=== PATIENT | male | born 1955 | race Caucasian/White ===

== ENCOUNTER → 2018-03-11 17:10 | Outpatient (CLI) | payer OTHER, SELFPAY ==
[2018-03-11 17:58] LABS: Creatinine, Serum 1.01 mg/dL (0.70-1.30); EST Glomerular Filtration Rate 80 mL/min (>60); Est Glom Filt Rate - Afr Amer 96 mL/min (>60)
== END ==
PROVIDERS: Family Provider Family Medicine; PCP Family Medicine
DX: M89.9 Disorder of bone, unspecified (principal)
CPT/HCPCS: 36415; 82565

== ENCOUNTER → 2018-04-21 07:14 | Outpatient (CLI) | payer OTHER, SELFPAY ==
[2018-04-21 10:10] LABS: Absolute Lymphocyte Count 1.56 X10^3/ul (0.83-4.51); Absolute Neutrophil Count 3.3 X10^3/uL (2.0-7.7); Basophil# 0.03 X10^3/uL; Basophil% 0.5 % (0-1); Eosinophil# 0.18 X10^3/uL; Eosinophils% 3.2 % (0-5); Hematocrit 43.3 % (40-54); Hemoglobin 15.3 g/dl (13.0-16.5); Lymphocyte # 1.56 X10^3/ul (4.0); Lymphocyte % 27.8 % (19-41); Mean Corp Hgb Conc 35.3 g/gl (32-36); Mean Corpuscular Hgb 30.4 pg (27.0-32.0); Mean Corpuscular Volume 86.1 fL (80-94); Monocyte# 0.52 X10^3/uL; Monocyte% 9.3 % (0-10); Neutrophil # 3.31 X10^3/uL (2.7-7.7); Platelet Count 213 K/mm3 (150-450); RBC Distribution Width CV 13.5 % (11.6-14.6); RBC Distribution Width SD 41.8 fl (35.1-43.9); Red Blood Count 5.03 M/mm3 (4.6-6.2); White Blood Count 5.6 K/mm3 (4.4-11.0)
[2018-04-21 10:12] LABS: POSITIVE COUNT NO; POSITIVE DIFFERENTIAL NO; POSITIVE MORPHOLOGY NO
[2018-04-21 10:16] LABS: Color, Urine Yellow (Yellow); Glucose, Dipstick Normal (Normal); Ketone-Dipstick Negative (Negative); Leukocyte Esterase-Dipstick Negative /ul (Negative); Nitrite-Dipstick Negative (Negative); Occult Blood-Urine Negative /ul (Negative); Protein-Dipstick 15 mg/dl (Negative); Specific Gravity, Urine 1.015 (1.002-1.030); Urine Bilirubin Dipstick Negative (Negative); Urine Clarity Clear (Clear); Urine Urobilinogen Normal (Normal)
[2018-04-21 10:28] LABS: Hemoglobin A1c 6.8 % (4.2-6.3)
[2018-04-21 10:30] LABS: ALB/GLOB Ratio 1.1 RATIO (0.9-2.4); AST(SGOT) 39 U/L (15-37); Alanine Aminotransfer ALT/SGPT 49 U/L (16-61); Albumin, Serum 3.9 g/dL (3.2-5.0); Alkaline Phosphatase 63 U/L (45-117); Anion Gap 8 (5-15); BUN 14 mg/dL (7-18); BUN/Creat Ratio 15.8 RATIO (10-20); Calcium,Total 8.7 mg/dL (8.5-10.1); Chloride 103 mmol/L (98-107); Cholesterol 188 mg/dL (200); Creatinine, Serum 0.88 mg/dL (0.70-1.30); EST Glomerular Filtration Rate 93 mL/min (>60); Est Glom Filt Rate - Afr Amer 112 mL/min (>60); Globulin 3.5 g/dL (2.2-4.2); Glucose 125 mg/dL (74-106); High Density Lipoprotein 51 mg/dL; Potassium 3.9 mmol/L (3.5-5.1); Protein, Total 7.4 g/dL (6.4-8.2); Sodium Level 140 mmol/L (136-145); Triglycerides 100 mg/dL; Very Low Density Lipoprotein 20 mg/dL (5-40)
[2018-04-24 16:11] LABS: Testosterone, Free 6.48 ng/dL (5.00-21.00)
[2018-04-26 10:27] LABS: Testosterone, % Free 3.21 % (1.50-4.20); Testosterone, Total 202 ng/dL (264-916)
== END ==
PROVIDERS: Family Provider Family Medicine; PCP Family Medicine; Visit Provider Family Medicine
DX: Z00.00 Encounter for general adult medical examination without abnormal findings (principal); Z12.5 Encounter for screening for malignant neoplasm of prostate; I10 Essential (primary) hypertension; E11.9 Type 2 diabetes mellitus without complications; E29.1 Testicular hypofunction; Z51.81 Encounter for therapeutic drug level monitoring
CPT/HCPCS: 36415; 80053; 80061; 81002; 83036; 84402; 84403; 85025

== ENCOUNTER → 2018-09-08 07:01 | Outpatient (CLI) | payer OTHER, SELFPAY ==
[2018-09-08 10:35] LABS: Hematocrit 44.8 % (40-54); Hemoglobin 15.9 g/dl (13.0-16.5); Mean Corp Hgb Conc 35.5 g/gl (32-36); Mean Corpuscular Hgb 30.2 pg (27.0-32.0); Mean Platelet Vol. 10.1 fl (6.2-12.0); Platelet Count 227 K/mm3 (150-450); RBC Distribution Width CV 13.1 % (11.6-14.6); RBC Distribution Width SD 40.8 fl (35.1-43.9); Red Blood Count 5.27 M/mm3 (4.6-6.2); White Blood Count 4.8 K/mm3 (4.4-11.0)
[2018-09-08 10:42] LABS: Scan Indicated on CBC? Y/N NO
[2018-09-08 10:48] LABS: Homocysteine 7.6 umol/L (3.2-10.7)
[2018-09-08 11:15] LABS: Hemoglobin A1c 7.3 % (4.2-6.3)
[2018-09-08 11:16] LABS: Vitamin B12 809 pg/mL (211-911); Vitamin D,25 Hydroxy 24.4 ng/mL (29.95-100.01)
[2018-09-08 11:53] LABS: ALB/GLOB Ratio 1.1 RATIO (0.9-2.4); AST(SGOT) 40 U/L (15-37); Alanine Aminotransfer ALT/SGPT 61 U/L (16-61); Albumin, Serum 4.1 g/dL (3.2-5.0); Alkaline Phosphatase 71 U/L (45-117); Anion Gap 7 (5-15); BUN 13 mg/dL (7-18); BUN/Creat Ratio 13.5 RATIO (10-20); CRP, High Sensitivity Cardiac 0.85 mg/L; Chloride 102 mmol/L (98-107); Cholesterol 207 mg/dL (200); Creatinine, Serum 0.97 mg/dL (0.70-1.30); EST Glomerular Filtration Rate 84 mL/min (>60); Est Glom Filt Rate - Afr Amer 101 mL/min (>60); Estradiol 28.6 pg/mL; Free T3 3.1 pg/mL (2.18-3.98); Globulin 3.6 g/dL (2.2-4.2); Glucose 156 mg/dL (74-106); High Density Lipoprotein 44 mg/dL; Iron 110 ug/dL (65-175); Luteinizing Hormone 0.3 mIU/mL; Magnesium 1.7 mg/dL (1.6-2.6); PSA,Total - Annual Screen 1.54 ng/mL (0.00-4.00); Potassium 4.1 mmol/L (3.5-5.1); Prolactin 6.1 ng/mL; Protein, Total 7.7 g/dL (6.4-8.2); Sodium Level 137 mmol/L (136-145); T4 Free Direct 0.95 ng/dL (0.76-1.46); Thyroid Stim Hormone (TSH) 1.81 uIU/mL (0.358-3.74); Triglycerides 128 mg/dL; Very Low Density Lipoprotein 26 mg/dL (5-40)
[2018-09-11 12:07] LABS: DHEA Sulfate 78.6 ug/dL (48.9-344.2); Insulin Like Growth Factor 150 ng/mL (49-188); Testosterone, % Free 3.13 % (1.50-4.20); Testosterone, Free 10.49 ng/dL (5.00-21.00)
[2018-09-11 14:08] LABS: Sex Hormone-binding Globulin 36.6 nmol/L (19.3-76.4); Testosterone, Total 335 ng/dL (264-916)
--- OUTSIDE RECORDS SUMMARY | 2018-10-20 19:52 | XMS RPT_ITS ---
:1955 Author Organization OHIP Care Team Providers Name Role Phone Saroj Hernandez Attending Unavailable Saroj Hernandez Primary Care Unavailable JUAN DANIEL ROSENTHAL Attending Unavailable JUAN DANIEL ROSENTHAL Referring Unavailable Saroj Hernandez Primary Care Unavailable Saroj Hernandez Attending Unavailable Saroj Hernandez Referring Unavailable David Saroj Primary Care Unavailable JUAN DANIEL ROSENTHAL Attending Unavailable JUAN DANIEL ROSENTHAL Referring Unavailable Saroj Hernandez Primary Care Unavailable PROBLEMS PROBLEMS DATE TYPE CONDITION / CODE ATTENDING STATUS SOURCE 09/22/2018 Unknown 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 / Community E88.81(ICD-10) Hospital Repository 04/21/2018 Unknown Z00.00 - Encounter Saroj Hernandez Active [place] for [facility] without abnormal Repository findings / Z00.00(ICD-10) 04/21/2018 Unknown I10 - Essential Saroj Hernandez (primary) [facility] hypertension / Hospital I10(ICD-10) Repository 04/21/2018 Unknown E11.9 - Type 2 Saroj Hernandez diabetes mellitus Community without Hospital complications / Repository E11.9(ICD-10) 04/21/2018 Unknown 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 / Community E29.1(ICD-10) Hospital Repository 04/21/2018 Unknown Z12.5 - Encounter Saroj Hernandez for screening for [facility] malignant neoplasm [facility] of prostate / Repository Z12.5(ICD-10) PROCEDURES PROCEDURES No Procedure Records FoundRESULTS RESULTS CBC-COMPLETE BLOOD CNT Collected: 09/08/2018 Status: F Source: [place] NO DIFF 7:07 AM [facility] REPOSITORY TYPE CODE TESTS RESULT OUT OF RANGE REFERENCE UNITS LAB L100.1000 4.4-11.0 K/mm3 Normal WBC 4.8 LAB L100.1200 4.6-6.2 M/mm3 Normal RBC 5.27 LAB L100.1300 13.0-16.5 g/dl Normal HGB 15.9 LAB L100.1400 40-54 % Normal HCT 44.8 LAB L100.1500 80-94 fL Normal MCV 85.0 LAB L100.1600 27.0-32.0 pg Normal MCH 30.2 LAB L100.1700 32-36 g/gl Normal MCHC 35.5 LAB L100.1810 11.6-14.6 % Normal RDW CV 13.1 LAB L100.1820 35.1-43.9 fl Normal RDW SD 40.8 LAB L100.1900 150-450 K/mm3 Normal PLT 227 LAB L100.2000 6.2-12.0 fl Normal MPV 10.1 Performed By: #### L100.0500 #### [facility] [address] [place], [place], [address] HOMOCYSTEINE Collected: 09/08/2018 Status: F Source: [place] 7:07 AM [facility] REPOSITORY TYPE CODE TESTS RESULT OUT OF REFERENCE UNITS RANGE LAB L503.8001 3.2-10.7 umol/L HOMOCYSTEINE Normal 7.6 Performed By: #### L503.8001 #### [facility] [address] [place], [address] HEMOGLOBIN A1C Collected: 09/08/2018 Status: F Source: [place] 7:07 AM [facility] REPOSITORY TYPE CODE TESTS RESULT OUT OF RANGE REFERENCE UNITS LAB L501.9985 4.2-6.3 % High HGB A1C 7.3 Performed By: #### L501.9985 #### [facility] [address] [place], [address] VITAMIN B12 Collected: 09/08/2018 Status: F Source: [place] 7:07 AM [facility] REPOSITORY Order Comment: Comments: PREGNENOLONE lc [id number] SERUM FRZ TYPE CODE TESTS RESULT OUT OF RANGE REFERENCE UNITS LAB L503.0105 211-911 pg/mL Normal Vitamin B12 809 Performed By: #### L503.0105, L506.1000, L509.6000 #### [facility] [address] [place], [address] VITAMIN D,25 HYDROXY Collected: 09/08/2018 Status: F Source: [place] 7:07 AM [facility] REPOSITORY Order Comment: Comments: PREGNENOLONE lc [id number] SERUM FRZ TYPE CODE TESTS RESULT OUT OF REFERENCE UNITS RANGE LAB L506.1000 29.95-100.01 ng/mL Low Vitamin D 24.4 25-OH Result Comment: Vitamin D 25(OH) Status Range Deficiency <20 ng/mL (50nmol/L) Insuffciency 20 - 30 ng/mL (50 - 75 nmol/L) Sufficiency 30 - 100 ng/mL (75 - 250 nmol/L) Toxicity >100 ng/mL (>250 nmol/L) Performed By: #### L503.0105, L506.1000, L509.6000 #### [facility] [address] [place], [address] CORTISOL SERUM Collected: 09/08/2018 Status: F Source: [place] 7:07 AM [facility] REPOSITORY Order Comment: Comments: PREGNENOLONE lc [id number] SERUM FRZ TYPE CODE TESTS RESULT OUT OF RANGE REFERENCE UNITS LAB L509.6000 3.09-22.40 ug/dL Normal CORTISOL 16.90 Result Comment: Adult (AM) 4.30 - 22.40 ug/dL Adult (PM) 3.09 - 16.66 ug/dL Performed By: #### L503.0105, L506.1000, L509.6000 #### [facility] [address] [place], [address] COMPREHENSIVE METABOLIC Collected: 09/08/2018 Status: F Source: [place] RIGGINS 7:07 AM [facility] REPOSITORY Order Comment: Has Patient had X-rays with Contrast this admission? N Comments: PREGNENOLONE lc [id number] SERUM FRZ Is Patient Taking Vitamins or Folic Acid Supplements? N TYPE CODE TESTS RESULT OUT OF RANGE REFERENCE UNITS LAB L501.0100 74-106 mg/dL High GLU 156 Result Comment: Fasting Glucose result greater than or equal to 126 mg/dL suggests DIABETES MELLITUS per A.D.A. criteria. Please note revised GLUCOSE reference range effective 2017. LAB L501.1000 7-18 mg/dL Normal BUN 13 LAB L501.1100 0.70-1.30 mg/dL Normal CREAT,SERUM 0.97 Result Comment: The validity of the calculated GFR AND GFRAA in patients over 70 years has not been determined. Clinical correlation is essential. LAB L501.1110 >60 mL/min Normal EST GFR 84 Result Comment: Non- GFR Calc LAB L501.1115 >60 mL/min Normal EST GFR - AA 101 Result Comment: GFR Calc LAB L501.1300 10-20 RATIO Normal BUN/CRE 13.5 LAB L501.1500 6.4-8.2 g/dL T Normal PROT 7.7 LAB L501.1800 3.2-5.0 g/dL Normal ALB 4.1 LAB L501.1950 2.2-4.2 g/dL Normal GLOB 3.6 LAB L501.2000 0.9-2.4 RATIO Normal A/G 1.1 LAB L501.2200 8.5-10.1 mg/dL CA Normal 9.0 LAB L501.4100 15-37 U/L High AST 40 LAB L501.4305 45-117 U/L Normal ALK P 71 LAB L501.4405 16-61 U/L Normal ALT 61 LAB L501.4600 0.20-1.00 mg/dL T Normal BILI 0.60 LAB L501.5300 136-145 mmol/L NA Normal 137 LAB L501.5600 3.5-5.1 mmol/L K Normal 4.1 LAB L501.5900 98-107 mmol/L CL Normal 102 LAB L501.6100 21.0-32.0 mmol/L Normal CO2 28.0 LAB L501.6200 5-15 Normal GAP 7 Performed By: #### L500.4050, L500.4100, L501.5200, L501.6750, L501.67176, L501.9310, L501.9520, L501.9910, L503.6150, L506.0250, L506.0400, L3100.5125, L3100.5170, L3100.5420, L3300.1750 #### [facility] [address] [place], [address] LIPID PROFILE Collected: 09/08/2018 Status: F Source: [place] 7:07 AM [facility] REPOSITORY Order Comment: Has Patient had X-rays with Contrast this admission? N Comments: PREGNENOLONE lc [id number] SERUM FRZ Is Patient Taking Vitamins or Folic Acid Supplements? N TYPE CODE TESTS RESULT OUT OF RANGE REFERENCE UNITS LAB L501.4900 200 mg/dL High CHOL 207 Result Comment: <200 mg/dL Desirable 200-240 mg/dL Borderline >240 mg/dL High Risk LAB L501.5000 mg/dL Normal TRIG 128 Result Comment: The drugs N-Acetylcysteine and Metamizole may falsely depress this assay. Serum Triglycerides Reference Interval Normal <150 mg/dL Borderline high 150 - 199 mg/dL High 200 - 499 mg/dL Very High > or = 500 mg/dL LAB L501.6400 mg/dL Normal HDL 44 Result Comment: The drugs N-Acetylcysteine and Metamizole may falsely depress this assay. Reference Range HDL <40 mg/dL Low HDL Cholesterol HDL >or= 60 mg/dL High HDL Cholesterol LAB L501.6500 0-130 mg/dL High LDL 137 LAB L501.6600 5-40 mg/dL Normal VLDL 26 Performed By: #### L500.4050, L500.4100, L501.5200, L501.6750, L501.25140, L501.9310, L501.9520, L501.9910, L503.6150, L506.0250, L506.0400, L3100.5125, L3100.5170, L3100.5420, L3300.1750 #### [facility] [address] [facility] [place], [place], [phone] ([phone]) MAGNESIUM Collected: 09/08/2018 Status: F Source: [place] 7:07 AM [facility] REPOSITORY Order Comment: Has Patient had X-rays with Contrast this admission? N Comments: PREGNENOLONE lc [id number] SERUM FRZ Is Patient Taking Vitamins or Folic Acid Supplements? N TYPE CODE TESTS RESULT OUT OF RANGE REFERENCE UNITS LAB L501.5200 1.6-2.6 mg/dL Normal MG 1.7 Performed By: #### L500.4050, L500.4100, L501.5200, L501.6750, L501.35236, L501.9310, L501.9520, L501.9910, L503.6150, L506.0250, L506.0400, L3100.5125, L3100.5170, L3100.5420, L3300.1750 #### [facility] [address] [facility] [place], [place], [phone], HIGH SENSITIVITY Collected: 09/08/2018 Status: F Source: [facility] 7:07 AM [facility] REPOSITORY Order Comment: Has Patient had X-rays with Contrast this admission? N Comments: PREGNENOLONE lc [id number] SERUM FRZ Is Patient Taking Vitamins or Folic Acid Supplements? N TYPE CODE TESTS RESULT OUT OF RANGE REFERENCE UNITS LAB L501.6750 mg/L Normal CRP HIGH 0.85 SENS Result Comment: Low Relative Risk of CVD <1.0 mg/L Average Relative Risk of CVD 1.0 - 3.0 mg/L High Relative Risk of CVD >3.0 mg/L Performed By: #### L500.4050, L500.4100, L501.5200, L501.6750, L501.39224, L501.9310, L501.9520, L501.9910, L503.6150, L506.0250, L506.0400, L3100.5125, L3100.5170, L3100.5420, L3300.1750 #### [facility] [address] [facility] [place], [place], [id number] FREE T3 Collected: 09/08/2018 Status: F Source: [place] 7:07 AM [facility] REPOSITORY Order Comment: Has Patient had X-rays with Contrast this admission? N Comments: PREGNENOLONE lc [id number] SERUM FRZ Is Patient Taking Vitamins or Folic Acid Supplements? N TYPE CODE TESTS RESULT OUT OF RANGE REFERENCE UNITS LAB L501.89199 2.18-3.98 pg/mL Normal FREE T3 3.1 Performed By: #### L500.4050, L500.4100, L501.5200, L501.6750, L501.44077, L501.9310, L501.9520, L501.9910, L503.6150, L506.0250, L506.0400, L3100.5125, L3100.5170, L3100.5420, L3300.1750 #### [facility] [address] [facility] [place], [place], [id number] T4 TOTAL, THYROXIN Collected: 09/08/2018 Status: F Source: [place] 7:07 AM [facility] REPOSITORY Order Comment: Has Patient had X-rays with Contrast this admission? N Comments: PREGNENOLONE lc [id number] SERUM FRZ Is Patient Taking Vitamins or Folic Acid Supplements? N TYPE CODE TESTS RESULT OUT OF RANGE REFERENCE UNITS LAB L501.9310 4.5-12.1 ug/dL T4 Normal THYROXIN 8.0 Performed By: #### L500.4050, L500.4100, L501.5200, L501.6750, L501.26264, L501.9310, L501.9520, L501.9910, L503.6150, L506.0250, L506.0400, L3100.5125, L3100.5170, L3100.5420, L3300.1750 #### [facility] [address] [place], [place], [id number] THYROID STIM HORMONE Collected: 09/08/2018 Status: F Source: [place] (TSH) 7:07 AM [facility] REPOSITORY Order Comment: Has Patient had X-rays with Contrast this admission? N Comments: PREGNENOLONE lc [id number] SERUM FRZ Is Patient Taking Vitamins or Folic Acid Supplements? N TYPE CODE TESTS RESULT OUT OF RANGE REFERENCE UNITS LAB L501.9520 0.358-3.74 uIU/mL Normal TSH 1.81 Performed By: #### L500.4050, L500.4100, L501.5200, L501.6750, L501.94445, L501.9310, L501.9520, L501.9910, L503.6150, L506.0250, L506.0400, L3100.5125, L3100.5170, L3100.5420, L3300.1750 #### [facility] [address] [facility] [place], [place], [address] PSA,TOTAL - ANNUAL Collected: 09/08/2018 Status: F Source: [place] SCREEN 7:07 AM [facility] REPOSITORY Order Comment: Has Patient had X-rays with Contrast this admission? N Comments: PREGNENOLONE lc [id number] SERUM FRZ Is Patient Taking Vitamins or Folic Acid Supplements? N TYPE CODE TESTS RESULT OUT OF RANGE REFERENCE UNITS LAB L501.9910 0.00-4.00 ng/mL Normal PSA,TOT 1.54 SCREEN Result Comment: This test was performed using the TPSA assay method for the Kabbee chemistry system. Values obtained with different assay methods cannot be used interchangably. When changing PSA assays in the course of monitoring a patient, additional sequential testing should be carried out to confirm baseline values. Performed By: #### L500.4050, L500.4100, L501.5200, L501.6750, L501.98807, L501.9310, L501.9520, L501.9910, L503.6150, L506.0250, L506.0400, L3100.5125, L3100.5170, L3100.5420, L3300.1750 #### [facility] [address] [place], [place], [phone] ([phone]) IRON Collected: 09/08/2018 Status: F Source: [place] 7:07 AM [facility] REPOSITORY Order Comment: Has Patient had X-rays with Contrast this admission? N Comments: PREGNENOLONE lc [id number] SERUM FRZ Is Patient Taking Vitamins or Folic Acid Supplements? N TYPE CODE TESTS RESULT OUT OF RANGE REFERENCE UNITS LAB L503.6150 65-175 ug/dL Normal IRON 110 Performed By: #### L500.4050, L500.4100, L501.5200, L501.6750, L501.66741, L501.9310, L501.9520, L501.9910, L503.6150, L506.0250, L506.0400, L3100.5125, L3100.5170, L3100.5420, L3300.1750 #### [facility] [address] [place], [place], [phone] ([phone] FOLATES, (FOLIC ACID) Collected: 09/08/2018 Status: F Source: [place] 7:07 AM [facility] REPOSITORY Order Comment: Has Patient had X-rays with Contrast this admission? N Comments: PREGNENOLONE lc [id number] SERUM FRZ Is Patient Taking Vitamins or Folic Acid Supplements? N TYPE CODE TESTS RESULT OUT OF RANGE REFERENCE UNITS LAB L506.0250 3.1-55.4 ng/mL Normal FOLATES 48.80 Performed By: #### L500.4050, L500.4100, L501.5200, L501.6750, L501.11606, L501.9310, L501.9520, L501.9910, L503.6150, L506.0250, L506.0400, L3100.5125, L3100.5170, L3100.5420, L3300.1750 #### [facility] [address] [place], [place], [address] [phone] T4 FREE DIRECT Collected: 09/08/2018 Status: F Source: [place] 7:07 AM [facility] REPOSITORY Order Comment: Has Patient had X-rays with Contrast this admission? N Comments: PREGNENOLONE lc [id number] SERUM FRZ Is Patient Taking Vitamins or Folic Acid Supplements? N TYPE CODE TESTS RESULT OUT OF RANGE REFERENCE UNITS LAB L506.0400 0.76-1.46 ng/dL Normal T4 FREE 0.95 DIRECT Performed By: #### L500.4050, L500.4100, L501.5200, L501.6750, L501.41551, L501.9310, L501.9520, L501.9910, L503.6150, L506.0250, L506.0400, L3100.5125, L3100.5170, L3100.5420, L3300.1750 #### [facility] [address] [facility] [address] [place], [address] FOLLICLE STIMULATING Collected: 09/08/2018 Status: F Source: [place] HORMONE 7:07 AM [facility] REPOSITORY Order Comment: Has Patient had X-rays with Contrast this admission? N Comments: PREGNENOLONE lc [id number] SERUM FRZ Is Patient Taking Vitamins or Folic Acid Supplements? N TYPE CODE TESTS RESULT OUT OF RANGE REFERENCE UNITS LAB L3100.5125 mIU/mL Normal FSH 1.0 Result Comment: NORMAL REFERENCE RANGES FEMALE FOLLICULAR 2.3 - 12.6 mIU/mL MID-CYCLE PEAK 5.2 - 17.5 mIU/mL LUTEAL 1.7 - 12.9 mIU/mL POST-MENOPAUSAL ON MHT 5.9 - 72.8 mIU/mL NOT ON MHT 12.7 - 132.2 mlU/mL MALE 0.7 - 10.8 mIU/mL NEW TEST METHOD AND REFERENCE RANGES MARCH 02, 2012 Performed By: #### L500.4050, L500.4100, L501.5200, L501.6750, L501.72178, L501.9310, L501.9520, L501.9910, L503.6150, L506.0250, L506.0400, L3100.5125, L3100.5170, L3100.5420, L3300.1750 #### [facility] [address] [place], [place], [address] LUTEINIZING HORMONE Collected: 09/08/2018 Status: F Source: [place] 7:07 AM [facility] REPOSITORY Order Comment: Has Patient had X-rays with Contrast this admission? N Comments: PREGNENOLONE lc [id number] SERUM FRZ Is Patient Taking Vitamins or Folic Acid Supplements? N TYPE CODE TESTS RESULT OUT OF RANGE REFERENCE UNITS LAB L3100.5170 mIU/mL Normal LH 0.3 Result Comment: NORMAL REFERENCE RANGES FEMALE FOLLICULAR 1.9 - 26.2 mIU/mL MID-CYCLE PEAK 22.8 - 76.1 mIU/mL LUTEAL 0.6 - 16.6 mIU/mL POST-MENOPAUSAL ON MHT 1.1 - 52.4 mIU/mL NOT ON MHT 8.6 - 61.8 mIU/mL MALE 1.2 - 10.6 mIU/mL NEW TEST METHOD AND REFERENCE RANGES MARCH 02, 2012 Performed By: #### L500.4050, L500.4100, L501.5200, L501.6750, L501.61982, L501.9310, L501.9520, L501.9910, L503.6150, L506.0250, L506.0400, L3100.5125, L3100.5170, L3100.5420, L3300.1750 #### [facility] [address] [place], [address] PROLACTIN Collected: 09/08/2018 Status: F Source: [place] 7:07 AM [facility] REPOSITORY Order Comment: Has Patient had X-rays with Contrast this admission? N Comments: PREGNENOLONE lc [id number] SERUM FRZ Is Patient Taking Vitamins or Folic Acid Supplements? N TYPE CODE TESTS RESULT OUT OF RANGE REFERENCE UNITS LAB L3100.5420 ng/mL Normal PROLACTIN 6.1 Result Comment: NORMAL REFERENCE RANGES FEMALE NON- 2.2 - 30.3 ng/mL 8.1 - 347.6 ng/mL POST-MENOPAUSAL 0.7 - 31.5 ng/mL MALE 2.5 - 17.4 ng/mL NEW TEST METHOD AND REFERENCE RANGES MARCH 02, 2012 Performed By: #### L500.4050, L500.4100, L501.5200, L501.6750, L501.43343, L501.9310, L501.9520, L501.9910, L503.6150, L506.0250, L506.0400, L3100.5125, L3100.5170, L3100.5420, L3300.1750 #### [facility] [address] [place], [place], [address] ESTRADIOL Collected: 09/08/2018 Status: F Source: [place] 7:07 AM [facility] REPOSITORY Order Comment: Has Patient had X-rays with Contrast this admission? N Comments: PREGNENOLONE lc [id number] SERUM FRZ Is Patient Taking Vitamins or Folic Acid Supplements? N TYPE CODE TESTS RESULT OUT OF RANGE REFERENCE UNITS LAB L3300.1750 pg/mL Normal ESTRADIOL 28.6 Result Comment: NORMAL REFERENCE RANGES FEMALE FOLLICULAR 21.4 - 164.8 pg/mL MID-CYCLE PEAK 49.9 - 367.2 pg/mL LUTEAL 40.2 - 259.0 pg/mL POST-MENOPAUSAL ON MHT <11.0 - 462.1 pg/mL NOT ON MHT <11.0 - 58.3 pg/mL MALE <11.0 - 52.5 pg/mL NOTE: [facility] HAS CONFIRMED THE DRUG FULVETRANT (FASLODEX) MAY CAUSE FALSELY ELEVATED ESTRADIOL RESULTS WHEN USING THIS TEST METHOD. IF PATIENT IS TAKING FULVESTRANT AN ALTERNATIVE METHOD SHOULD BE USED TO DETERMINE ESTRADIOL CONCENTRATION. Performed By: #### L500.4050, L500.4100, L501.5200, L501.6750, L501.84717, L501.9310, L501.9520, L501.9910, L503.6150, L506.0250, L506.0400, L3100.5125, L3100.5170, L3100.5420, L3300.1750 #### [facility] [address] [place], [place], [address] SEX HORMONE-BINDING Collected: 09/08/2018 Status: F Source: [place] GLOBULIN 7:07 AM [facility] REPOSITORY Order Comment: Has Patient had X-rays with Contrast this admission? N Comments: PREGNENOLONE lc [id number] SERUM FRZ Has Patient had Radioactive Injection for X-ray?: N TYPE CODE TESTS RESULT OUT OF RANGE REFERENCE UNITS LAB L3100.5060 19.3-76.4 nmol/L Normal SHBG 36.6 Result Comment: Performed at: - [facility] [id number] Gym Teacher: Kavin Sosa PhD, Phone: [phone] Performed at: - [facility] [id number] Gym Teacher: Anthony Borden MD, Phone: [phone] Performed By: #### L3100.5060, L3100.5310, L3300.1500, L3400.1350 #### [facility] (refer to report for specific site) refer to report for address and phone number TESTOSTERONE, TOTAL / Collected: 09/08/2018 Status: F Source: [place] FREE 7:07 AM [facility] REPOSITORY Order Comment: Has Patient had X-rays with Contrast this admission? N Comments: PREGNENOLONE lc [id number] SERUM FRZ Has Patient had Radioactive Injection for X-ray?: N TYPE CODE TESTS RESULT OUT OF RANGE REFERENCE UNITS LAB L3100.5320 264-916 ng/dL Normal 335 TESTOSTER,TO NICK Result Comment: Adult male reference interval is based on a population of healthy nonobese males (BMI <30) between 19 and 39 years old. shayy Calderon.al. JCEM 2017,102;5497-2686. PMID: [id number]. LAB L3100.5340 5.00-21.00 ng/dL TESTOSTER,FREE Normal 10.49 LAB L3100.5360 1.50-4.20 % TESTOSTER %FREE Normal 3.13 Performed By: #### L3100.5060, L3100.5310, L3300.1500, L3400.1350 #### [facility] (refer to report for specific site) refer to report for address and phone number DHEA SULFATE Collected: 09/08/2018 Status: F Source: [place] 7:07 AM [facility] REPOSITORY Order Comment: Has Patient had X-rays with Contrast this admission? N Comments: PREGNENOLONE lc [id number] SERUM FRZ Has Patient had Radioactive Injection for X-ray?: N TYPE CODE TESTS RESULT OUT OF RANGE REFERENCE UNITS LAB L3300.1500 48.9-344.2 ug/dL Normal DHEA SULF 78.6 4020 Performed By: #### L3100.5060, L3100.5310, L3300.1500, L3400.1350 #### [facility] (refer to report for specific site) refer to report for address and phone number INSULIN LIKE GROWTH Collected: 09/08/2018 Status: F Source: [place] FACTOR 7:07 AM [facility] REPOSITORY Order Comment: Has Patient had X-rays with Contrast this admission? N Comments: PREGNENOLONE lc [id number] SERUM FRZ Has Patient had Radioactive Injection for X-ray?: N TYPE CODE TESTS RESULT OUT OF RANGE REFERENCE UNITS LAB L3400.1350 49-188 ng/mL Normal INSULIN 150 [id number] Performed By: #### L3100.5060, L3100.5310, L3300.1500, L3400.1350 #### [facility] (refer to report for specific site) refer to report for address and phone number MISCELLANEOUS LAB Collected: 09/08/2018 Status: F Source: [place] PROCEDURE 7:07 AM [facility] REPOSITORY Order Comment: Comments: PREGNENOLONE lc [id number] SERUM FRZ Test(s) Ordered: PREGNENOLONE lc 110246 SERUM FRZ TYPE CODE TESTS RESULT OUT OF RANGE REFERENCE UNITS LAB L801.1541 Normal [facility] LAB TEST Result Comment: TEST RESULT UNITS REFERENCE INTERVAL Pregnenolone, MS 34 ng/dL REFERENCE RANGE: ADULTS: <151 TESTING PERFORMED AT [facility]. ORIGINAL REPORT ON FILE IN LAB CONTAINS ADDITIONAL TEST SITE INFORMATION. Performed By: #### L801.1541 #### [facility] [address], [address] CBC W/DIFF, AUTOMATED Collected: 04/21/2018 Status: F Source: [place] 7:22 AM [facility] REPOSITORY TYPE CODE TESTS RESULT OUT OF RANGE REFERENCE UNITS LAB L100.1000 4.4-11.0 K/mm3 Normal WBC 5.6 LAB L100.1200 4.6-6.2 M/mm3 Normal RBC 5.03 LAB L100.1300 13.0-16.5 g/dl Normal HGB 15.3 LAB L100.1400 40-54 % Normal HCT 43.3 LAB L100.1500 80-94 fL Normal MCV 86.1 LAB L100.1600 27.0-32.0 pg Normal MCH 30.4 LAB L100.1700 32-36 g/gl Normal MCHC 35.3 LAB L100.1810 11.6-14.6 % Normal RDW CV 13.5 LAB L100.1820 35.1-43.9 fl Normal RDW SD 41.8 LAB L100.1900 150-450 K/mm3 Normal PLT 213 LAB L100.2000 6.2-12.0 fl Normal MPV 10.0 LAB L100.2100 47-70 % Normal NEUT% 59.0 LAB L100.2200 19-41 % Normal LY% 27.8 LAB L100.2300 0-10 % Normal MONO% 9.3 LAB L100.2400 0-5 % Normal EO% 3.2 LAB L100.2500 0-1 % Normal BASO% 0.5 LAB L100.2550 0.0-0.9 % Normal IM GRAN % 0.200 Result Comment: IG% - Immature Granulocytes (promyelocytes, myelocytes and metamyelocytes) > 1% indicates that a LEFT SHIFT is Present. LAB L100.2620 2.0-7.7 X10 3/uL Normal Absolute Neut 3.3 LAB L100.2720 0.83-4.51 X10 3/ul Normal Absolute Lymph 1.56 Performed By: #### L100.0100 #### [facility] [address] [place], [address] URINALYSIS, ROUTINE Collected: 04/21/2018 Status: F Source: EDI (DIPSTICK) 7:22 AM [facility] [place] REPOSITORY Order Comment: How was Urine Obtained? CLEAN CATCH TYPE CODE TESTS RESULT OUT OF RANGE REFERENCE UNITS LAB L400.3000 Yellow COLOR Normal Yellow LAB L400.3050 Clear Normal CLARITY Clear LAB L400.3200 Normal mg/dl Normal GLUCOSE, UR Normal LAB L400.3300 Negative mg/dL Normal BILIRUBIN URINE Negative LAB L400.3400 Negative mg/dl Normal KETONE UR Negative LAB L400.3465 1.002-1.030 Normal SP.GR. DIPSTX 1.015 LAB L400.3550 5.0 - 8.0 pH UR Normal 6.0 LAB L400.3600 Negative mg/dl High PROT 15 DIPSTX LAB L400.3700 Normal mg/dl Normal UROBILI Normal LAB L400.3750 Negative Normal NITRITE UR Negative LAB L400.3780 Negative /ul Normal OCCULT BLOOD-UR Negative LAB L400.3800 Negative /ul LEUK Normal ESTERASE Negative Performed By: #### L400.2010 #### [facility] [address] [place], [place], [address] HEMOGLOBIN A1C Collected: 04/21/2018 Status: F Source: [place] 7:22 AM [facility] REPOSITORY TYPE CODE TESTS RESULT OUT OF RANGE REFERENCE UNITS LAB L501.9985 4.2-6.3 % High HGB A1C 6.8 Performed By: #### L501.9985 #### [facility] [address] [place], [address] COMPREHENSIVE METABOLIC Collected: 04/21/2018 Status: F Source: [facility] 7:22 AM [facility] REPOSITORY Order Comment: PSA SCREEN WAS DONE 10/09/18 TYPE CODE TESTS RESULT OUT OF RANGE REFERENCE UNITS LAB L501.0100 74-106 mg/dL High GLU 125 Result Comment: Fasting Glucose result from 100 to 125 mg/dL suggests IMPAIRED HOMEOSTASIS per A.D.A. criteria. Please note revised GLUCOSE reference range effective 2017. LAB L501.1000 7-18 mg/dL Normal BUN 14 LAB L501.1100 0.70-1.30 mg/dL Normal CREAT,SERUM 0.88 Result Comment: The validity of the calculated GFR AND GFRAA in patients over 70 years has not been determined. Clinical correlation is essential. LAB L501.1110 >60 mL/min Normal EST GFR 93 Result Comment: Non- GFR Calc LAB L501.1115 >60 mL/min Normal EST GFR - AA 112 Result Comment: GFR Calc LAB L501.1300 10-20 RATIO Normal BUN/CRE 15.8 LAB L501.1500 6.4-8.2 g/dL T Normal PROT 7.4 LAB L501.1800 3.2-5.0 g/dL Normal ALB 3.9 LAB L501.1950 2.2-4.2 g/dL Normal GLOB 3.5 LAB L501.2000 0.9-2.4 RATIO Normal A/G 1.1 LAB L501.2200 8.5-10.1 mg/dL CA Normal 8.7 LAB L501.4100 15-37 U/L High AST 39 LAB L501.4305 45-117 U/L Normal ALK P 63 LAB L501.4405 16-61 U/L Normal ALT 49 LAB L501.4600 0.20-1.00 mg/dL High T BILI 1.20 LAB L501.5300 136-145 mmol/L NA Normal 140 LAB L501.5600 3.5-5.1 mmol/L K Normal 3.9 LAB L501.5900 98-107 mmol/L CL Normal 103 LAB L501.6100 21.0-32.0 mmol/L Normal CO2 29.0 LAB L501.6200 5-15 Normal GAP 8 Performed By: #### L500.4050, L500.4100 #### [facility]. [place], [place], [id number] LIPID PROFILE Collected: 04/21/2018 Status: F Source: [place] 7:22 AM [facility] REPOSITORY Order Comment: PSA SCREEN WAS DONE 10/09/18 TYPE CODE TESTS RESULT OUT OF RANGE REFERENCE UNITS LAB L501.4900 200 mg/dL Normal CHOL 188 Result Comment: <200 mg/dL Desirable 200-240 mg/dL Borderline >240 mg/dL High Risk LAB L501.5000 mg/dL Normal TRIG 100 Result Comment: The drugs N-Acetylcysteine and Metamizole may falsely depress this assay. Serum Triglycerides Reference Interval Normal <150 mg/dL Borderline high 150 - 199 mg/dL High 200 - 499 mg/dL Very High > or = 500 mg/dL LAB L501.6400 mg/dL Normal HDL 51 Result Comment: The drugs N-Acetylcysteine and Metamizole may falsely depress this assay. Reference Range HDL <40 mg/dL Low HDL Cholesterol HDL >or= 60 mg/dL High HDL Cholesterol LAB L501.6500 0-130 mg/dL Normal LDL 117 LAB L501.6600 5-40 mg/dL Normal VLDL 20 Performed By: #### L500.4050, L500.4100 #### [facility] [address] [place], [address] TESTOSTERONE, TOTAL / Collected: 04/21/2018 Status: F Source: [place] FREE 7:22 AM [facility] REPOSITORY Order Comment: Has Patient had X-rays with Contrast this admission? N TYPE CODE TESTS RESULT OUT OF RANGE REFERENCE UNITS LAB L3100.5320 264-916 ng/dL Low 202 TESTOSTER,TO NICK Result Comment: Adult male reference interval is based on a population of healthy nonobese males (BMI <30) between 19 and 39 years old. Yumiko et.al. JCEM 2017,102;2954-1418. PMID: 13752565. LAB L3100.5340 5.00-21.00 ng/dL TESTOSTER,FREE Normal 6.48 LAB L3100.5360 1.50-4.20 % TESTOSTER %FREE Normal 3.21 Result Comment: Performed at: [facility] [id number] Gym Teacher: Kavin Sosa PhD, Phone: [phone] Performed at: [facility] [id number] Gym Teacher: Leighton Jauregui MD, Phone: [phone] Performed By: #### L3100.5310 #### [facility] (refer to report for specific site) refer to report for address and phone number SERUM CREATININE AND Collected: 03/11/2018 Status: F Source: EDI GFR 5:14 PM [facility] REPOSITORY TYPE CODE TESTS RESULT OUT OF RANGE REFERENCE UNITS LAB L501.1100 0.70-1.30 mg/dL Normal 1.01 CREAT,SERUM Result Comment: The validity of the calculated GFR AND GFRAA in patients over 70 years has not been determined. Clinical correlation is essential. LAB L501.1110 >60 mL/min Normal EST GFR 80 Result Comment: Non- GFR Calc LAB L501.1115 >60 mL/min Normal EST GFR - AA 96 Result Comment: GFR Calc Performed By: #### L501.1105 #### [facility] [address] [place], [address] CBC W/DIFF, AUTOMATED Collected: 10/09/2017 Status: F Source: [place] 7:20 AM [facility] REPOSITORY TYPE CODE TESTS RESULT OUT OF RANGE REFERENCE UNITS LAB L100.1000 4.4-11.0 K/mm3 Normal WBC 4.9 LAB L100.1200 4.6-6.2 M/mm3 Normal RBC 5.12 LAB L100.1300 13.0-16.5 g/dl Normal HGB 15.0 LAB L100.1400 40-54 % Normal HCT 44.7 LAB L100.1500 80-94 fL Normal MCV 87.3 LAB L100.1600 27.0-32.0 pg Normal MCH 29.3 LAB L100.1700 32-36 g/gl Normal MCHC 33.6 LAB L100.1810 11.6-14.6 % Normal RDW CV 13.8 LAB L100.1820 35.1-43.9 fl Normal RDW SD 43.7 LAB L100.1900 150-450 K/mm3 Normal PLT 217 LAB L100.2000 6.2-12.0 fl Normal MPV 10.4 LAB L100.2100 47-70 % Normal NEUT% 54.2 LAB L100.2200 19-41 % Normal LY% 32.7 LAB L100.2300 0-10 % Normal MONO% 9.2 LAB L100.2400 0-5 % Normal EO% 3.1 LAB L100.2500 0-1 % Normal BASO% 0.6 LAB L100.2550 0.0-0.9 % Normal IM GRAN % 0.200 Result Comment: IG% - Immature Granulocytes (promyelocytes, myelocytes and metamyelocytes) > 1% indicates that a LEFT SHIFT is Present. LAB L100.2620 2.0-7.7 X10 3/uL Normal Absolute Neut 2.7 LAB L100.2720 0.83-4.51 X10 3/ul Normal Absolute Lymph 1.60 Performed By: #### L100.0100 #### [facility] [address] [place], [address] PSA,TOTAL - ANNUAL Collected: 10/09/2017 Status: F Source: [place] SCREEN 7:20 AM [facility] REPOSITORY TYPE CODE TESTS RESULT OUT OF RANGE REFERENCE UNITS LAB L501.9910 0.00-4.00 ng/mL Normal PSA,TOT 1.62 SCREEN Result Comment: This test was performed using the TPSA assay method for the Kabbee chemistry system. Values obtained with different assay methods cannot be used interchangably. When changing PSA assays in the course of monitoring a patient, additional sequential testing should be carried out to confirm baseline values. Performed By: #### L501.9910 #### [facility] [address] [place], [address] HEMOGLOBIN A1C Collected: 10/09/2017 Status: F Source: [place] 7:20 AM [facility] REPOSITORY TYPE CODE TESTS RESULT OUT OF RANGE REFERENCE UNITS LAB L501.9985 4.2-6.3 % High HGB A1C 6.8 Performed By: #### L501.9985 #### [facility] [address] [facility] [place], [address] TESTOSTERONE, TOTAL / Collected: 10/09/2017 Status: F Source: [place] FREE 7:20 AM [facility] REPOSITORY Order Comment: Has Patient had X-rays with Contrast this admission? N TYPE CODE TESTS RESULT OUT OF RANGE REFERENCE UNITS LAB L3100.5320 264-916 ng/dL Normal 323 TESTOSTER,TO NICK Result Comment: Adult male reference interval is based on a population of healthy nonobese males (BMI <30) between 19 and 39 years old. Yumiko et.al. JCEM 2017,102;2835-5443. PMID: 50091125. LAB L3100.5340 5.00-21.00 ng/dL TESTOSTER,FREE Normal 6.62 LAB L3100.5360 1.50-4.20 % TESTOSTER %FREE Normal 2.05 Result Comment: Performed at: [place] [id number] Gym Teacher: Kavin Sosa PhD, Phone: [phone] Performed at: [facility] [id number] Gym Teacher: Leighton Jauregui MD, Phone: [phone] Performed By: #### L3100.5310 #### [facility] (refer to report for specific site) refer to report for address and phone number ALLERGIES ALLERGIES DATE TYPE / CODE NAME / CODE REACTION SEVERITY SOURCE 07/28/2017 Drug chicken Anaphylaxis Unknown [place] Allergy/[id number](S derived/F006 [facility]) [id number](Formerly [facility]) Repository 07/28/2017 Miscellaneous TURKEY Anaphylaxis Unknown [place] Allergy/[id number]([facility]) Hospital Repository ENCOUNTERS ENCOUNTERS ADMIT/DISCHARGE ACCOUNT ADMITTING ENCOUNTER LOCATION SOURCE NUMBER CLASS 09/08/2018 [id number] Ambulatory [place] [facility] 6 [facility] ing:MTLAB Repository 04/21/2018 [id number] Ambulatory [place] 8 [facility] ing:MTLAB Repository 03/11/2018 [id number] Ambulatory [place] 4 [facility] ing:LAB Repository 10/09/2017 [id number] Ambulatory [place] 0 [facility] ing:LAB.FUTUR Repository E PAYERS PAYERS ENCOUNTER GUARANTOR PAYER SUBSCRIBER SOURCE 09/08/2018 LUANNE Shipley Primary LUANNE R [place] [id number] N Insurance:MEDICAL LEMMONDOB: [facility] [id number] Repository [id number]: (641) [id number] [phone] () Date:1522-05-74GH [address] [place] [id number]: 09/08/2018 Secondary NOT GIVENUNK [place] Insurance:SELF PAY [facility] Number: Effective Repository Date:2018-09-08 04/21/2018 LUANNE R Primary LUANNE R [place] [id number] N Insurance:MEDICAL LEMMONDOB: [facility] [id number] [place] [address] Number: Repository [id number]: 330 [id number] [phone] (HP) Date:2104-02-33ZA [address] [place] [phone]: 04/21/2018 Secondary NOT GIVENUNK [place] Insurance:SELF PAY [facility] Number: Effective Repository Date:2018-04-21 03/11/2018 LUANNE R Primary LUANNE R [place] [id number] N Insurance:MEDICAL LEMMONDOB: [facility] [place] [facility] [id number] Number: Repository [id number]: 330 [id number] [phone] () Date:4561-59-27UA [address] [address]FI: 03/11/2018 Secondary NOT GIVENUNK [place] Insurance:SELF PAY [facility] Number: Effective Repository Date:2018-03-11 10/09/2017 Luanne [id number] Primary Luanne LemmonDOB: [place] Insurance:[facility]ICAL [id number] [address]Nvk: 330) Number: Repository [phone] () [id number] Date:3129-41-70YA [address] [address]YN: 10/09/2017 Secondary NOT GIVENUNK [place] Insurance:SELF PAY [facility] Number: Effective Repository Date:2017-04-13
== END ==
PROVIDERS: Family Provider Family Medicine; PCP Family Medicine
DX: E88.81 Metabolic syndrome and other insulin resistance (principal); R53.82 Chronic fatigue, unspecified; R68.82 Decreased libido; E29.1 Testicular hypofunction
CPT/HCPCS: 36415; 80053; 80061; 82306; 82533; 82607; 82627; 82670; 82746; 83001; 83002; 83036; 83090; 83540; 83735; 84146; 84153; 84270; 84305; 84402; 84403; 84436; 84439; 84443; 84481; 85027; 86141; 82626; G0103

== ENCOUNTER → 2018-10-21 16:22 | Outpatient (CLI) | payer OTHER, SELFPAY ==
[2018-10-21 18:06] LABS: Hemoglobin A1c 7.5 % (4.2-6.3)
== END ==
PROVIDERS: Family Provider Family Medicine; PCP Family Medicine; Referring Provider Family Medicine; Visit Provider Family Medicine
DX: E11.9 Type 2 diabetes mellitus without complications (principal); E29.1 Testicular hypofunction
CPT/HCPCS: 36415; 83036; 84403

== ENCOUNTER → 2018-12-29 07:03 | Outpatient (CLI) | payer OTHER, SELFPAY ==
[2018-12-29 10:04] LABS: Hematocrit 47.1 % (40-54); Hemoglobin 15.4 g/dl (13.0-16.5); Mean Corp Hgb Conc 32.7 g/gl (32-36); Mean Corpuscular Hgb 28.6 pg (27.0-32.0); Mean Corpuscular Volume 87.4 fL (80-94); Mean Platelet Vol. 9.6 fl (6.2-12.0); Platelet Count 269 K/mm3 (150-450); RBC Distribution Width CV 12.6 % (11.6-14.6); RBC Distribution Width SD 40.3 fl (35.1-43.9); Red Blood Count 5.39 M/mm3 (4.6-6.2); Scan Indicated on CBC? Y/N NO; White Blood Count 6.2 K/mm3 (4.4-11.0)
[2018-12-29 11:06] LABS: ALB/GLOB Ratio 1.1 RATIO (0.9-2.4); AST(SGOT) 39 U/L (15-37); Alanine Aminotransfer ALT/SGPT 46 U/L (16-61); Albumin, Serum 3.9 g/dL (3.2-5.0); Alkaline Phosphatase 67 U/L (45-117); Anion Gap 5 (5-15); BUN 14 mg/dL (7-18); BUN/Creat Ratio 13.2 RATIO (10-20); Calcium,Total 8.7 mg/dL (8.5-10.1); Chloride 100 mmol/L (98-107); Cholesterol 170 mg/dL (200); Creatinine, Serum 1.06 mg/dL (0.70-1.30); EST Glomerular Filtration Rate 75 mL/min (>60); Est Glom Filt Rate - Afr Amer 91 mL/min (>60); Estradiol 111.3 pg/mL; Globulin 3.7 g/dL (2.2-4.2); Glucose 115 mg/dL (74-106); High Density Lipoprotein 37 mg/dL; Potassium 3.8 mmol/L (3.5-5.1); Protein, Total 7.6 g/dL (6.4-8.2); Sodium Level 136 mmol/L (136-145); Triglycerides 64 mg/dL; Very Low Density Lipoprotein 13 mg/dL (5-40)
[2018-12-29 12:23] LABS: Progesterone Level 0.15 ng/mL (See Comment); Vitamin B12 985 pg/mL (211-911); Vitamin D,25 Hydroxy 96.7 ng/mL (29.95-100.01)
[2019-01-01 14:07] LABS: Testosterone, % Free 3.95 % (1.50-4.20)
[2019-01-02 16:55] LABS: DHEA Sulfate 87.9 ug/dL (48.9-344.2); Testosterone, Total > 1500 ng/dL (264-916)
== END ==
PROVIDERS: Family Provider Family Medicine; PCP Family Medicine; Referring Provider Registered Nurse; Visit Provider Registered Nurse
DX: R53.82 Chronic fatigue, unspecified (principal); M62.81 Muscle weakness (generalized); R89.1 Abnormal level of hormones in specimens from other organs, systems and tissues
CPT/HCPCS: 36415; 80053; 80061; 82306; 82607; 82627; 82670; 82746; 84144; 84402; 84403; 85027; 82626

== ENCOUNTER → 2019-03-23 07:14 | Outpatient (CLI) | payer OTHER, SELFPAY ==
[2019-03-23 10:30] LABS: Vitamin B12 709 pg/mL (211-911); Vitamin D,25 Hydroxy 83.8 ng/mL (29.95-100.01)
[2019-03-23 11:22] LABS: ALB/GLOB Ratio 1.1 RATIO (0.9-2.4); AST(SGOT) 49 U/L (15-37); Alanine Aminotransfer ALT/SGPT 58 U/L (16-61); Albumin, Serum 3.9 g/dL (3.2-5.0); Alkaline Phosphatase 68 U/L (45-117); Anion Gap 5 (5-15); BUN 16 mg/dL (7-18); BUN/Creat Ratio 15.8 RATIO (10-20); Calcium,Total 8.8 mg/dL (8.5-10.1); Chloride 101 mmol/L (98-107); Cholesterol 173 mg/dL (200); Creatinine, Serum 1.01 mg/dL (0.70-1.30); EST Glomerular Filtration Rate 79 mL/min (>60); Est Glom Filt Rate - Afr Amer 96 mL/min (>60); Estradiol 39.7 pg/mL; Globulin 3.6 g/dL (2.2-4.2); Glucose 126 mg/dL (74-106); High Density Lipoprotein 48 mg/dL; Potassium 3.9 mmol/L (3.5-5.1); Protein, Total 7.5 g/dL (6.4-8.2); Sodium Level 136 mmol/L (136-145); Triglycerides 61 mg/dL; Very Low Density Lipoprotein 12 mg/dL (5-40)
[2019-03-23 12:12] LABS: Hematocrit 46.9 % (40-54); Hemoglobin 15.9 g/dl (13.0-16.5); Mean Corp Hgb Conc 33.9 g/gl (32-36); Mean Corpuscular Hgb 27.9 pg (27.0-32.0); Mean Corpuscular Volume 82.3 fL (80-94); Mean Platelet Vol. 10.4 fl (6.2-12.0); Platelet Count 216 K/mm3 (150-450); White Blood Count 5.7 K/mm3 (4.4-11.0)
[2019-03-23 12:13] LABS: Scan Indicated on CBC? Y/N NO
[2019-03-27 12:06] LABS: Testosterone, % Free 4.22 % (1.50-4.20); Testosterone, Free 36.17 ng/dL (5.00-21.00)
[2019-03-27 15:23] LABS: DHEA Sulfate 100.9 ug/dL (48.9-344.2); Testosterone, Total 857 ng/dL (264-916)
== END ==
PROVIDERS: Family Provider Family Medicine; PCP Family Medicine; Referring Provider Family Medicine
DX: E29.1 Testicular hypofunction (principal); M62.81 Muscle weakness (generalized); R53.82 Chronic fatigue, unspecified; R68.82 Decreased libido
CPT/HCPCS: 36415; 80053; 80061; 82306; 82607; 82627; 82670; 82746; 84402; 84403; 85027; 82626

== ENCOUNTER → 2019-04-21 16:29 | Outpatient (CLI) | payer OTHER, SELFPAY ==
[2019-04-21 17:32] LABS: Color, Urine Yellow (Yellow); Glucose, Dipstick Normal (Normal); Ketone-Dipstick Negative (Negative); Leukocyte Esterase-Dipstick Negative /ul (Negative); Nitrite-Dipstick Negative (Negative); Occult Blood-Urine 10 /ul (Negative); Protein-Dipstick 15 mg/dl (Negative); Specific Gravity, Urine 1.025 (1.002-1.030); Urine Bilirubin Dipstick Negative (Negative); Urine Clarity Sl. Cloudy (Clear); Urine Urobilinogen Normal (Normal)
[2019-04-21 17:43] LABS: ALB/GLOB Ratio 1.1 RATIO (0.9-2.4); AST(SGOT) 47 U/L (15-37); Alanine Aminotransfer ALT/SGPT 52 U/L (16-61); Alkaline Phosphatase 73 U/L (45-117); Anion Gap 6 (5-15); BUN 21 mg/dL (7-18); BUN/Creat Ratio 18.8 RATIO (10-20); Calcium,Total 9.7 mg/dL (8.5-10.1); Chloride 103 mmol/L (98-107); Creatinine, Serum 1.12 mg/dL (0.70-1.30); EST Glomerular Filtration Rate 70 mL/min (>60); Est Glom Filt Rate - Afr Amer 85 mL/min (>60); Globulin 3.5 g/dL (2.2-4.2); Glucose 153 mg/dL (74-106); PSA,Total - Annual Screen 2.27 ng/mL (0.00-4.00); Potassium 4.1 mmol/L (3.5-5.1); Protein, Total 7.5 g/dL (6.4-8.2); Sodium Level 138 mmol/L (136-145)
== END ==
PROVIDERS: Family Provider Family Medicine; PCP Family Medicine; Referring Provider Family Medicine; Visit Provider Family Medicine
DX: Z00.00 Encounter for general adult medical examination without abnormal findings (principal); E11.9 Type 2 diabetes mellitus without complications; Z12.5 Encounter for screening for malignant neoplasm of prostate; I10 Essential (primary) hypertension
CPT/HCPCS: 36415; 80053; 81002; 84153; G0103

== ENCOUNTER → 2019-06-18 07:17 | Outpatient (CLI) | payer OTHER, SELFPAY ==
[2019-06-18 08:42] LABS: Hematocrit 48.5 % (40-54); Hemoglobin 16.8 g/dL (13.0-16.5); Mean Corp Hgb Conc 34.6 g/dL (32-36); Mean Corpuscular Hgb 29.8 pg (27.0-32.0); Mean Platelet Vol. 9.5 fl (6.2-12.0); Platelet Count 209 K/mm3 (150-450); RBC Distribution Width CV 14.4 % (11.6-14.6); RBC Distribution Width SD 45.6 fl (35.1-43.9); Red Blood Count 5.64 M/mm3 (4.6-6.2); White Blood Count 6.2 K/mm3 (4.4-11.0)
[2019-06-18 10:15] LABS: ALB/GLOB Ratio 1.1 RATIO (0.9-2.4); AST(SGOT) 53 U/L (15-37); Alanine Aminotransfer ALT/SGPT 58 U/L (16-61); Alkaline Phosphatase 62 U/L (45-117); Anion Gap 4 (5-15); BUN 15 mg/dL (7-18); Calcium,Total 9.2 mg/dL (8.5-10.1); Chloride 103 mmol/L (98-107); Cholesterol 171 mg/dL (200); EST Glomerular Filtration Rate 80 mL/min (>60); Est Glom Filt Rate - Afr Amer 97 mL/min (>60); Estradiol 77.7 pg/mL; Globulin 3.7 g/dL (2.2-4.2); Glucose 125 mg/dL (74-106); High Density Lipoprotein 51 mg/dL; Protein, Total 7.7 g/dL (6.4-8.2); Sodium Level 138 mmol/L (136-145); Triglycerides 72 mg/dL; Very Low Density Lipoprotein 14 mg/dL (5-40)
[2019-06-18 12:27] LABS: Progesterone Level 0.27 ng/mL (See Comment); Vitamin B12 751 pg/mL (211-911); Vitamin D,25 Hydroxy 92.9 ng/mL (29.95-100.01)
[2019-06-21 09:07] LABS: Testosterone, % Free 3.14 % (1.50-4.20)
[2019-06-21 11:35] LABS: DHEA Sulfate 103.8 ug/dL (48.9-344.2); Testosterone, Total 933 ng/dL (264-916)
== END ==
PROVIDERS: Family Provider Family Medicine; PCP Family Medicine
DX: E29.1 Testicular hypofunction (principal); R53.82 Chronic fatigue, unspecified; R68.82 Decreased libido
CPT/HCPCS: 36415; 80053; 80061; 82306; 82607; 82627; 82670; 82746; 84144; 84402; 84403; 85027; 82626

== ENCOUNTER → 2019-10-08 07:46 | Outpatient (CLI) | payer OTHER, SELFPAY ==
[2019-10-08 10:56] LABS: Hematocrit 48.6 % (40-54); Hemoglobin 16.5 g/dL (13.0-16.5); Mean Corpuscular Hgb 29.7 pg (27.0-32.0); Mean Corpuscular Volume 87.4 fL (80-94); Platelet Count 238 K/mm3 (150-450); Red Blood Count 5.56 M/mm3 (4.6-6.2); White Blood Count 5.6 K/mm3 (4.4-11.0)
[2019-10-08 11:22] LABS: Progesterone Level 0.04 ng/mL (See Comment); Vitamin B12 744 pg/mL (211-911); Vitamin D,25 Hydroxy 107.7 ng/mL (29.95-100.01)
[2019-10-08 11:54] LABS: ALB/GLOB Ratio 1.2 RATIO (0.9-2.4); AST(SGOT) 53 U/L (15-37); Alanine Aminotransfer ALT/SGPT 64 U/L (16-61); Alkaline Phosphatase 64 U/L (45-117); Anion Gap 5 (5-15); BUN 14 mg/dL (7-18); Chloride 103 mmol/L (98-107); Cholesterol 166 mg/dL (200); EST Glomerular Filtration Rate 80 mL/min (>60); Est Glom Filt Rate - Afr Amer 97 mL/min (>60); Estradiol 57.5 pg/mL; Globulin 3.3 g/dL (2.2-4.2); Glucose 125 mg/dL (74-106); High Density Lipoprotein 42 mg/dL; Potassium 4.2 mmol/L (3.5-5.1); Protein, Total 7.3 g/dL (6.4-8.2); Sodium Level 139 mmol/L (136-145); Triglycerides 77 mg/dL; Very Low Density Lipoprotein 15 mg/dL (5-40)
[2019-10-11 08:06] LABS: Testosterone, % Free 3.65 % (1.50-4.20); Testosterone, Free 38.36 ng/dL (5.00-21.00)
[2019-10-11 12:59] LABS: Testosterone, Total 1051 ng/dL (264-916)
== END ==
PROVIDERS: Family Provider Family Medicine; PCP Family Medicine; Referring Provider Nurse Practitioner Family; Visit Provider Nurse Practitioner Family
DX: E29.1 Testicular hypofunction (principal); M62.81 Muscle weakness (generalized); R53.82 Chronic fatigue, unspecified
CPT/HCPCS: 36415; 80053; 80061; 82306; 82607; 82627; 82670; 82746; 84144; 84402; 84403; 85027; 82626

== ENCOUNTER → 2019-10-22 13:08 | Outpatient (CLI) | payer OTHER, SELFPAY ==
[2019-10-22 14:48] LABS: Hemoglobin A1c 6.4 % (4.2-6.3)
== END ==
PROVIDERS: Family Provider Family Medicine; PCP Family Medicine; Referring Provider Family Medicine; Visit Provider Family Medicine
DX: E11.9 Type 2 diabetes mellitus without complications (principal)
CPT/HCPCS: 36415; 83036

== ENCOUNTER → 2019-11-04 16:26 | Outpatient (CLI) | payer OTHER, SELFPAY ==
[2019-11-04 18:20] LABS: BNP,B-Type NATRIURETIC PEPTIDE 31.6 pg/mL (0-100)
[2019-11-08 09:52] LABS: G6PD Quant Test 248 (146-376)
== END ==
PROVIDERS: PCP Family Medicine; Referring Provider Nurse Practitioner Family; Visit Provider Nurse Practitioner Family
DX: M62.81 Muscle weakness (generalized) (principal); R53.82 Chronic fatigue, unspecified
CPT/HCPCS: 36415; 82955; 83880

== ENCOUNTER → 2020-04-03 07:26 | Outpatient (CLI) | payer OTHER, SELFPAY ==
[2020-04-03 09:42] LABS: Hematocrit 49.1 % (40-54); Hemoglobin 16.3 g/dL (13.0-16.5); Mean Corp Hgb Conc 33.2 g/dL (32-36); Mean Corpuscular Hgb 29.4 pg (27.0-32.0); Mean Corpuscular Volume 88.5 fL (80-94); Mean Platelet Vol. 10.2 fl (6.2-12.0); Platelet Count 237 K/mm3 (150-450); RBC Distribution Width CV 13.7 % (11.6-14.6); RBC Distribution Width SD 44.4 fl (35.1-43.9); Red Blood Count 5.55 M/mm3 (4.6-6.2); White Blood Count 7.4 K/mm3 (4.4-11.0)
[2020-04-03 10:19] LABS: Hemoglobin A1c 6.1 % (3.8-5.6)
[2020-04-03 10:54] LABS: ALB/GLOB Ratio 1.1 RATIO (0.9-2.4); AST(SGOT) 47 U/L (15-37); Alanine Aminotransfer ALT/SGPT 54 U/L (16-61); Albumin, Serum 3.9 g/dL (3.2-5.0); Alkaline Phosphatase 64 U/L (45-117); Anion Gap 4 (5-15); BUN 19 mg/dL (7-18); Calcium,Total 8.9 mg/dL (8.5-10.1); Chloride 103 mmol/L (98-107); Cholesterol 160 mg/dL (200); EST Glomerular Filtration Rate 80 mL/min (>60); Est Glom Filt Rate - Afr Amer 97 mL/min (>60); Estradiol 73.5 pg/mL; Globulin 3.5 g/dL (2.2-4.2); Glucose 120 mg/dL (74-106); High Density Lipoprotein 41 mg/dL; Potassium 4.1 mmol/L (3.5-5.1); Protein, Total 7.4 g/dL (6.4-8.2); Sodium Level 137 mmol/L (136-145); Triglycerides 93 mg/dL; Very Low Density Lipoprotein 19 mg/dL (5-40)
[2020-04-03 13:45] LABS: Vitamin B12 710 pg/mL (211-911)
[2020-04-03 13:53] LABS: Progesterone Level < 0.21 ng/mL (See Comment)
[2020-04-07 12:08] LABS: Testosterone, % Free 2.69 % (1.50-4.20); Testosterone, Free 24.02 ng/dL (5.00-21.00)
[2020-04-07 15:18] LABS: DHEA Sulfate 88.9 ug/dL (48.9-344.2); Testosterone, Total 893 ng/dL (264-916)
== END ==
PROVIDERS: PCP Family Medicine; Referring Provider Nurse Practitioner Family; Visit Provider Nurse Practitioner Family
DX: R53.82 Chronic fatigue, unspecified (principal); M62.81 Muscle weakness (generalized); R68.82 Decreased libido
CPT/HCPCS: 36415; 80053; 80061; 82306; 82607; 82627; 82670; 82746; 83036; 84144; 84402; 84403; 85027; 82626

== ENCOUNTER → 2020-09-12 07:13 | Outpatient (CLI) | payer OTHER, SELFPAY ==
[2020-09-12 09:59] LABS: Hematocrit 51.6 % (40-54); Hemoglobin 16.9 g/dL (13.0-16.5); Mean Corp Hgb Conc 32.8 g/dL (32-36); Mean Corpuscular Volume 88.7 fL (80-94); Mean Platelet Vol. 9.6 fl (6.2-12.0); Platelet Count 233 K/mm3 (150-450); RBC Distribution Width CV 13.1 % (11.6-14.6); RBC Distribution Width SD 42.6 fl (35.1-43.9); Red Blood Count 5.82 M/mm3 (4.6-6.2); White Blood Count 6.5 K/mm3 (4.4-11.0)
[2020-09-12 10:09] LABS: Homocysteine 7.6 umol/L (3.2-10.7)
[2020-09-12 10:23] LABS: Hemoglobin A1c 6.3 % (3.8-5.6)
[2020-09-12 11:19] LABS: Progesterone Level 0.33 ng/mL (See Comment); Vitamin B12 678 pg/mL (211-911); Vitamin D,25 Hydroxy 82.6 ng/mL
[2020-09-12 11:57] LABS: CRP, High Sensitivity Cardiac 0.81 mg/L; Cholesterol 177 mg/dL (200); Estradiol 65.1 pg/mL; Follicle Stimulating Hormone < 0.2 mIU/mL; High Density Lipoprotein 46 mg/dL; Iron 143 ug/dL (65-175); Luteinizing Hormone < 0.2 mIU/mL; Magnesium 1.6 mg/dL (1.6-2.6); PSA,Total - Annual Screen 3.91 ng/mL (0.00-4.00); Prolactin 12.4 ng/mL; T4 Total, Thyroxin 5.6 ug/dL (4.5-12.1); Triglycerides 134 mg/dL; Very Low Density Lipoprotein 27 mg/dL (5-40)
[2020-09-16 12:07] LABS: DHEA Sulfate 84.7 ug/dL (48.9-344.2); Insulin Like Growth Factor 202 ng/mL (64-240); Testosterone, % Free 4.54 % (1.50-4.20); Testosterone, Free 48.21 ng/dL (5.00-21.00)
[2020-09-18 04:25] LABS: Sex Hormone-binding Globulin 29.6 nmol/L (19.3-76.4); Testosterone, Total 1062 ng/dL (264-916)
== END ==
PROVIDERS: PCP Family Medicine; Referring Provider Nurse Practitioner Family; Visit Provider Nurse Practitioner Family
DX: R53.82 Chronic fatigue, unspecified (principal); M62.81 Muscle weakness (generalized); R68.82 Decreased libido
CPT/HCPCS: 36415; 80061; 82306; 82533; 82607; 82627; 82670; 82746; 83001; 83002; 83036; 83090; 83540; 83735; 84144; 84146; 84153; 84270; 84305; 84402; 84403; 84436; 85027; 86141; 82626; G0103

== ENCOUNTER → 2021-01-18 09:06 | Outpatient (CLI) | payer OTHER, SELFPAY ==
--- NOTE | 2021-01-18 08:54 | EKG12_ITS ---
Test Reason : PRE OP Blood Pressure : / mmHG Vent. Rate : 070 BPM Atrial Rate : 070 BPM P-R Int : 176 ms QRS Dur : 100 ms QT Int : 342 ms P-R-T Axes : 061 030 049 degrees QTc Int : 369 ms Normal sinus rhythm Normal ECG Confirmed by CARLITOS RUELAS, SHERICE ([id number]), videotape editor WYATT MCMAHAN ([id number]) on 01/19/2021 2:44:46 PM Referred By: Luis Antonio Leblanc Confirmed By:DIPAK URBINA MD
== END ==
PROVIDERS: PCP Family Medicine; Referring Provider Urology; Visit Provider Urology
DX: Z01.812 Encounter for preprocedural laboratory examination (principal)
CPT/HCPCS: 87635; 93005; C9803; U0002

== ENCOUNTER → 2021-01-22 15:55 | Outpatient (CLI) | payer OTHER, SELFPAY ==
[2021-01-22 17:39] LABS: Hematocrit 46.2 % (40-54); Hemoglobin 15.5 g/dL (13.0-16.5); Mean Corp Hgb Conc 33.5 g/dL (32-36); Mean Corpuscular Hgb 29.8 pg (27.0-32.0); Mean Corpuscular Volume 88.8 fL (80-94); Mean Platelet Vol. 10.3 fl (6.2-12.0); Platelet Count 236 K/mm3 (150-450); RBC Distribution Width CV 13.5 % (11.6-14.6); RBC Distribution Width SD 44.2 fl (35.1-43.9); White Blood Count 7.2 K/mm3 (4.4-11.0)
[2021-01-22 18:35] LABS: ALB/GLOB Ratio 1.1 RATIO (0.9-2.4); AST(SGOT) 43 U/L (15-37); Alanine Aminotransfer ALT/SGPT 53 U/L (16-61); Albumin, Serum 3.9 g/dL (3.2-5.0); Alkaline Phosphatase 83 U/L (45-117); Anion Gap 4 (5-15); BUN 18 mg/dL (7-18); BUN/Creat Ratio 19.1 RATIO (10-20); Calcium,Total 9.3 mg/dL (8.5-10.1); Chloride 100 mmol/L (98-107); Creatinine, Serum 0.94 mg/dL (0.70-1.30); EST Glomerular Filtration Rate 85 mL/min (>60); Est Glom Filt Rate - Afr Amer 103 mL/min (>60); Globulin 3.5 g/dL (2.2-4.2); Glucose 110 mg/dL (74-106); Potassium 3.8 mmol/L (3.5-5.1); Protein, Total 7.4 g/dL (6.4-8.2); Sodium Level 136 mmol/L (136-145)
== END ==
PROVIDERS: PCP Family Medicine; Referring Provider Urology; Visit Provider Urology
DX: Z03.818 Encounter for observation for suspected exposure to other biological agents ruled out (principal)
CPT/HCPCS: 36415; 80053; 85027

== ENCOUNTER → 2021-02-15 16:42 | Outpatient (CLI) | payer OTHER, SELFPAY | PROVIDERS: PCP Family Medicine; Referring Provider Urology; Visit Provider Urology | DX: Z12.5 Encounter for screening for malignant neoplasm of prostate (principal) ==

== ENCOUNTER → 2021-03-28 07:39 | Outpatient (CLI) | payer OTHER, SELFPAY ==
[2021-03-28 10:22] LABS: Hematocrit 48.8 % (40-54); Hemoglobin 16.5 g/dL (13.0-16.5); Mean Corp Hgb Conc 33.8 g/dL (32-36); Mean Corpuscular Hgb 29.8 pg (27.0-32.0); Mean Corpuscular Volume 88.2 fL (80-94); Platelet Count 233 K/mm3 (150-450); RBC Distribution Width CV 12.8 % (11.6-14.6); RBC Distribution Width SD 41.5 fl (35.1-43.9); Red Blood Count 5.53 M/mm3 (4.6-6.2); White Blood Count 5.6 K/mm3 (4.4-11.0)
[2021-03-28 10:43] LABS: Hemoglobin A1c 6.3 % (3.8-5.6)
[2021-03-28 10:45] LABS: T3 Total - Triiodothyronine 1.12 ng/mL (0.6-1.81); Vitamin B12 699 pg/mL (211-911); Vitamin D,25 Hydroxy 59.2 ng/mL
[2021-03-28 10:55] LABS: Homocysteine 7.1 umol/L (3.2-10.7)
[2021-03-28 11:15] LABS: Progesterone Level < 0.21 ng/mL (See Comment)
[2021-03-28 12:09] LABS: ALB/GLOB Ratio 1.1 RATIO (0.9-2.4); AST(SGOT) 45 U/L (15-37); Alanine Aminotransfer ALT/SGPT 56 U/L (16-61); Alkaline Phosphatase 73 U/L (45-117); Anion Gap 3 (5-15); BUN 17 mg/dL (7-18); BUN/Creat Ratio 16.7 RATIO (10-20); CRP, High Sensitivity Cardiac 0.82 mg/L; Calcium,Total 8.8 mg/dL (8.5-10.1); Chloride 104 mmol/L (98-107); Cholesterol 182 mg/dL (200); Creatinine, Serum 1.02 mg/dL (0.70-1.30); EST Glomerular Filtration Rate 78 mL/min (>60); Est Glom Filt Rate - Afr Amer 94 mL/min (>60); Estradiol 66.3 pg/mL; Follicle Stimulating Hormone < 0.2 mIU/mL; Globulin 3.5 g/dL (2.2-4.2); Glucose 117 mg/dL (74-106); High Density Lipoprotein 52 mg/dL; Iron 70 ug/dL (65-175); Luteinizing Hormone < 0.2 mIU/mL; Magnesium 1.6 mg/dL (1.6-2.6); PSA,Total - Annual Screen 2.52 ng/mL (0.00-4.00); Potassium 4.5 mmol/L (3.5-5.1); Prolactin 9.1 ng/mL; Protein, Total 7.5 g/dL (6.4-8.2); Sodium Level 138 mmol/L (136-145); T4 Free Direct 0.77 ng/dL (0.76-1.46); Thyroid Stim Hormone (TSH) 1.56 uIU/mL (0.358-3.74); Triglycerides 67 mg/dL; Very Low Density Lipoprotein 13 mg/dL (5-40)
[2021-04-01 03:06] LABS: DHEA Sulfate 63.1 ug/dL (48.9-344.2); Insulin Like Growth Factor 161 ng/mL (64-240); Testosterone, % Free 3.07 % (1.50-4.20); Testosterone, Free 35.03 ng/dL (5.00-21.00)
[2021-04-01 08:54] LABS: Sex Hormone-binding Globulin 32.2 nmol/L (19.3-76.4); Testosterone, Total 1141 ng/dL (264-916)
== END ==
PROVIDERS: PCP Family Medicine; Referring Provider Nurse Practitioner Family; Visit Provider Nurse Practitioner Family
DX: R53.82 Chronic fatigue, unspecified (principal); M62.81 Muscle weakness (generalized); R68.82 Decreased libido; E29.1 Testicular hypofunction
CPT/HCPCS: 36415; 80053; 80061; 82306; 82533; 82607; 82627; 82670; 82746; 83001; 83002; 83036; 83090; 83540; 83735; 84144; 84146; 84153; 84270; 84305; 84402; 84403; 84436; 84439; 84443; 84480; 85027; 86141; 82626; G0103

== ENCOUNTER 2021-09-12 10:40 | Day surgery (SDC) | payer OTHER, SELFPAY ==
--- NOTE | 2021-09-10 16:22 | EKG12_ITS ---
Test Reason : Blood Pressure : / mmHG Vent. Rate : 059 BPM Atrial Rate : 059 BPM P-R Int : 184 ms QRS Dur : 100 ms QT Int : 372 ms P-R-T Axes : 053 010 046 degrees QTc Int : 368 ms Sinus bradycardia Low voltage QRS Incomplete right bundle branch block Reconfirmed by KIM RUELAS, CUAUHTEMOC ([id number]), web editor JULIANA MALIK ([id number]) on 09/12/2021 9:37:20 AM Referred By: Luis Antonio Leblanc Confirmed By:CUAUHTEMOC ALVAREZ MD
[2021-09-10 18:06] LABS: Hemoglobin A1c 6.5 % (3.8-5.6)
[2021-09-10 18:14] LABS: BUN 16 mg/dL (7-18); Creatinine, Serum 0.96 mg/dL (0.70-1.30); Glucose 166 mg/dL (74-106)
[2021-09-10 18:15] LABS: Anion Gap 8 (5-15); BUN/Creat Ratio 16.6 RATIO (10-20); Calcium,Total 9.9 mg/dL (8.5-10.1); Chloride 101 mmol/L (98-107); EST Glomerular Filtration Rate 83 mL/min (>60); Est Glom Filt Rate - Afr Amer 101 mL/min (>60); Sodium Level 138 mmol/L (136-145)
[2021-09-12] VITALS (13 sets, daily range): BP systolic 125–147; BP diastolic 67–90; PULSE 53–70; RESP 16–18; TEMP 35.8–36.8; O2SAT 94–98; BMI 26.6; BMI 26.5
--- NOTE | 2021-09-12 | PROS_PTH ---
PATIENT: LUANNE FANG LOC: [facility] U#:[id number] AGE/SX: 66/M ROOM: RE09/12/[address]: Dr. Luis Antonio Leblanc MD : 1955 BED: DIS: 09/13/2021 SPEC #: [id number] RECD: 09/13/21 08:56 STATUS: MARITZA COWAN #: [id number] YAYA: 09/12/21 00:[address]: Luis Antonio Leblanc DEPT: SURGICAL PATHOLOGY RECD BY: Tung Horton ENTERED: 09/13/21 08:56 SP TYPE: TURP OTHR DR: Dr. Saroj Hernandez MD Tissues: Prostate, NOS Procedures: Surgery Specimen Level IV HEADER OPERATION: Cysto, TUR prostate, Olympus PRE-OP DIAGNOSIS: Elevated BPH with lower urinary tract symptoms, nocturia TISSUE SUBMITTED: Prostate tissue MICROSCOPIC DIAGNOSIS Prostate tissue, TUR: Benign prostatic hyperplasia, glandular and stromal type. SJ:marcelino 09/14/2021 MICROSCOPIC DESCRIPTION Slides are reviewed. GROSS DESCRIPTION Received is one container labeled with the patient's name and designated prostate tissue. The specimen consists of multiple irregular fragments of pink-bustos, rubbery, soft tissue that in aggregate weigh 9.3 gm and measure in aggregate 5 x 4.5 x 2 cm. The entire specimen is submitted in ten cassettes. / JING:marcelino 09/13/21 TC:5 CPT: 97502
[2021-09-12] MEDS: Lactated Ringers 1,000 ML 15 ML IV (10:55)
[2021-09-12 11:30] LABS: Bedside Glucose 121 mg/dL (70-110)
[2021-09-12] MEDS: Cefazolin 2 GM in 0.9% Normal Saline 100 ML IV (13:13)
--- NOTE | 2021-09-12 14:09 | PCM.HP.STD ---
HPI - General HPI Narrative LUANNE FANG, is a 66 M who presents for transurethral resection of the prostate he has a large obstructive prostate PFSH Medical History (Updated 09/10/21 @ 13:16 by Carlita Meneses) Diabetes Dietary restriction Gastric reflux History of stress test Hypertension Leg cramps Migraine headache Non-smoker Prostate disease Home Medications Ramipril 5 mg PO DAILY 11/29/14 [History Last Taken 09/12/21] esomeprazole magnesium [Nexium] 40 mg PO DAILY 11/29/14 [History Last Taken 09/12/21] metformin 500 mg PO BID 11/29/14 [History Last Taken 07/28/17] zinc 50 mg PO DAILY 09/10/21 [History Last Taken Unknown] ciprofloxacin HCl [Cipro] 500 mg PO BID #14 tab 09/12/21 [Rx Last Taken Unknown] Allergy/AdvReac Type Severity Reaction Status Date / Time chicken derived Allergy Anaphylaxis Verified 09/12/21 11:14 TURKEY Allergy Anaphylaxis Uncoded 09/12/21 11:14 Surgical History (Updated 09/10/21 @ 13:16 by Carlita Meneses) Hx of cystoscopy Social History Smoking Status: Never smoker Vital Signs Vital Signs Vital Signs: 09/12/21 11:15 Temperature 97.5 F L Temperature Source Temporal Pulse Rate 67 Respiratory Rate 16 Respiratory Pattern Normal Blood Pressure 141/90 H Blood Pressure Mean 107 Blood Pressure Source Monitor Blood Pressure Position Semi-Fowlers Blood Pressure Location Left Arm Pulse Ox 98 Oxygen Delivery Method Room Air Weight Weight: 89 kg Body Mass Index (BMI) 26.6 Results Lab / Micro Data Result Diagrams: 09/10/21 16:39 09/10/21 16:39 Labs: Laboratory Results - last 24 hr 09/12/21 11:08: POC Glucose 121 H
--- NOTE | 2021-09-12 14:14 | PCM.DC ---
Discharge Instructions Diet Discharge Diet: No restrictions Activity May resume sexual activity in: 4-6 weeks Weight Bearing Status: Weight bearing as tolerated Dressing / Incision Call your doctor if you observe: Fever of 101 or Higher Catheter: King to leg bag and King to large bag Drain: [place] Additional Dressing/Incision Instructions:: remove king in 3 days Follow Up Care Please Follow Up With: Luis Antonio Leblanc MD When: Call [phone] for an appointment Test Results: Test results from this visit will be discussed in further detail at your follow-up appointment, if applicable. Discharge Plan Admission Primary Reason for Your Visit: TURP Attending Provider: Luis Antonio Leblanc Primary Care Provider: Saroj Hernandez Instructions Patient Instructions: TURP Home Recovery Discharge Orders/Prescriptions Prescriptions: New ciprofloxacin HCl [Cipro] 500 mg tablet 500 mg PO BID Qty: 14 RF: 0 Continued metformin 500 MG tablet 500 mg PO BID RF: 0 esomeprazole magnesium [Nexium] 40 MG capsule,delayed release(DR/EC) 40 mg PO DAILY RF: 0 Ramipril 5 MG capsule 5 mg PO DAILY RF: 0 zinc 50 mg Tablet 50 mg PO DAILY RF: 0 Discontinued tamsulosin [Flomax] 0.4 MG capsule 0.4 mg PO DAILY RF: 0 aspirin [Aspir-81] 81 mg Tablet,Delayed Release (Dr/Ec) 81 mg PO DAILY RF: 0 Referrals / Follow Up: Luis Antonio Leblanc MD [STAFF PHYSICIAN] - Saroj Hernandez MD [Primary Care Provider] - Disposition Disposition (needs filled in before D/C Order can be placed): Home, Self Care
--- NOTE | 2021-09-12 14:15 | PCM.OPRPT ---
Report of Operation Date of Procedure: 09/12/21 Pre-Operative Diagnosis: BPH with obstruction Post-Operative Diagnosis: Same Surgery/Procedure Performed:: Transurethral resection of the prostate Description of Surgical Findings:: 66-year-old male who is been having difficulty with urinating on cystoscopy was found to have a fairly large median lobe causing obstruction fairly short length and prostate we talked about options of management I recommended the transurethral resection as the best long-term management for his prostate we talked about the risk of the surgery risk of bleeding infection scar tissue development risk of incontinence and also changes sexually. 66-year-old male was taken back to the operating room at the smooth induction of general anesthesia he was placed in dorsolithotomy position. The penis and testicles were prepped and draped in usual sterile fashion dilated the urethra to 26 Samoan without any difficulties I then went into the bladder with a 24 Samoan noncontinuous flow Olympus resectoscope identified the large obstructing median lobe this was resected down to the bladder neck I then resected down from the bladder neck to the verumontanum and then resected the right lobe of the prostate resect the left lobe the prostate and then very carefully resected the apical tissue pulled back to the sphincter resected some flapping tissue but then he had a nice wide open channel all the way from the prostate into the urethral sphincter area of the sphincter was intact Ellik out all the chips cauterized extensively inside the prostate obtain hemostasis we placed a 20 Samoan catheter into the bladder and he was good to be discharged home today with a catheter with instructions to remove the catheter in 3 days for voiding trial he will follow-up 2 weeks in the office there was a complete resection he had a nice wide open flow at the end of the resection. Surgeon: garrett Type of Anesthesia: General Drains: 20 fr king Admit VTE Documentation VTE Present on Admission: No VTE Mechan Device Prophylaxis: SCD's VTE Pharm Prophylaxis ordered?: No
[2021-09-12 16:21] LABS: Bedside Glucose 100 mg/dL (70-110)
[2021-09-12] MEDS: Acetaminophen 500 MG Tablet 1000 MG PO (16:49)
--- NOTE | 2021-09-12 18:57 | PCS.PANDOC ---
PANDEMIC DOCUMENTATION INITIATED: Date: 05/28/2021 Time: 190
[2021-09-13 01:44] VITALS: BMI 26.6
[2021-09-13] MEDS: Acetaminophen 500 MG Tablet PO (02:48)
[2021-09-13 03:44] VITALS: BP 129/78; PULSE 63; RESP 16; TEMP 36.6; O2SAT 96
[2021-09-13 05:44] VITALS: BMI 26.6
[2021-09-13 08:26] VITALS: BP 145/96; PULSE 63; RESP 16; TEMP 37.2; O2SAT 96
[2021-09-13 09:44] VITALS: BMI 26.6
[2021-09-13 11:25] VITALS: BP 146/84; PULSE 64; RESP 16; TEMP 36.8; O2SAT 96
== END 2021-09-13 11:59 | disposition home or self-care (01) ==
LOC: SDC 10:42 → AC 10:42 → MS3 17:16
PROVIDERS: Anesthesiology; PCP Family Medicine; Referring Provider Urology; Visit Provider Urology
PROC: (CPT 52601; principal; 2021-09-12 12:40)
DX: N40.1 Benign prostatic hyperplasia with lower urinary tract symptoms (principal); N13.8 Other obstructive and reflux uropathy; I10 Essential (primary) hypertension; K21.9 Gastro-esophageal reflux disease without esophagitis; E11.9 Type 2 diabetes mellitus without complications; Z79.899 Other long term (current) drug therapy; Z79.84 Long term (current) use of oral hypoglycemic drugs; Z79.82 Long term (current) use of aspirin; I45.10 Unspecified right bundle-branch block; R00.1 Bradycardia, unspecified
CPT/HCPCS: 52601; 36415; 80048; 82962; 83036; 87426; 88305; 93005; J7120; J2405

== ENCOUNTER 2021-10-25 07:06 | Outpatient (CLI) | payer OTHER, SELFPAY ==
[2021-10-25 10:12] LABS: Hematocrit 44.8 % (40-54); Hemoglobin 15.3 g/dL (13.0-16.5); Mean Corp Hgb Conc 34.2 g/dL (32-36); Mean Corpuscular Hgb 29.8 pg (27.0-32.0); Mean Corpuscular Volume 87.3 fL (80-94); Mean Platelet Vol. 9.9 fl (6.2-12.0); Platelet Count 234 K/mm3 (150-450); RBC Distribution Width CV 13.1 % (11.6-14.6); RBC Distribution Width SD 41.5 fl (35.1-43.9); Red Blood Count 5.13 M/mm3 (4.6-6.2); White Blood Count 5.7 K/mm3 (4.4-11.0)
[2021-10-25 10:30] LABS: T3 Total - Triiodothyronine 1.09 ng/mL (0.6-1.81); Vitamin B12 523 pg/mL (211-911); Vitamin D,25 Hydroxy 46.9 ng/mL
[2021-10-25 10:34] LABS: Hemoglobin A1c 6.4 % (3.8-5.6)
[2021-10-25 11:13] LABS: ALB/GLOB Ratio 1.1 RATIO (0.9-2.4); AST(SGOT) 38 U/L (15-37); Alanine Aminotransfer ALT/SGPT 48 U/L (16-61); Albumin, Serum 3.9 g/dL (3.2-5.0); Alkaline Phosphatase 69 U/L (45-117); Anion Gap 9 (5-15); BUN 17 mg/dL (7-18); BUN/Creat Ratio 18.8 RATIO (10-20); CRP < 2.90 mg/L (0.0-3.0); Calcium,Total 9.2 mg/dL (8.5-10.1); Chloride 102 mmol/L (98-107); Cholesterol 158 mg/dL (200); Creatinine, Serum 0.91 mg/dL (0.70-1.30); EST Glomerular Filtration Rate 89 mL/min (>60); Est Glom Filt Rate - Afr Amer 108 mL/min (>60); Estradiol 65.4 pg/mL; Follicle Stimulating Hormone < 0.2 mIU/mL; Globulin 3.4 g/dL (2.2-4.2); Glucose 125 mg/dL (74-106); High Density Lipoprotein 49 mg/dL; Iron 72 ug/dL (65-175); Luteinizing Hormone < 0.2 mIU/mL; Magnesium 1.8 mg/dL (1.6-2.6); PSA,Total- Diagnostic 3.51 ng/mL (0.0-4.0); Potassium 4.4 mmol/L (3.5-5.1); Prolactin 16.9 ng/mL; Protein, Total 7.3 g/dL (6.4-8.2); Sodium Level 139 mmol/L (136-145); T4 Free Direct 0.88 ng/dL (0.76-1.46); T4 Total, Thyroxin 5.5 ug/dL (4.5-12.1); Triglycerides 50 mg/dL; Very Low Density Lipoprotein 10 mg/dL (5-40)
[2021-10-25 13:09] LABS: CRP, High Sensitivity Cardiac 1.38 mg/L; Progesterone Level 0.22 ng/mL (See Comment)
[2021-10-28 10:07] LABS: DHEA Sulfate 78.7 ug/dL (30.9-295.6); Insulin Like Growth Factor 144 ng/mL (64-240); Testosterone, % Free 3.82 % (1.50-4.20); Testosterone, Free 44.12 ng/dL (5.00-21.00)
[2021-10-28 13:02] LABS: Sex Hormone-binding Globulin 30.5 nmol/L (19.3-76.4); Testosterone, Total 1155 ng/dL (264-916)
== END 2021-10-25 23:59 | disposition short-term general hospital (02) ==
PROVIDERS: PCP Family Medicine; Referring Provider Nurse Practitioner Family; Visit Provider Nurse Practitioner Family
DX: R53.82 Chronic fatigue, unspecified (principal); M62.81 Muscle weakness (generalized); E29.1 Testicular hypofunction
CPT/HCPCS: 36415; 80053; 80061; 82306; 82533; 82607; 82627; 82670; 82746; 83001; 83002; 83036; 83090; 83540; 83735; 84144; 84146; 84153; 84270; 84305; 84402; 84403; 84436; 84439; 84443; 84480; 85027; 86140; 86141; 82626

== ENCOUNTER → 2022-05-09 | Outpatient (CLI) | payer OTHER, SELFPAY ==
--- NOTE | 2022-05-09 16:10 | CT_ITS ---
INDICATION: HEMATURIA EXAMINATION: CT Abdomen And Pelvis W/O Contrast Injection TECHNIQUE: Helically acquired images were obtained of the abdomen and pelvis without the use of IV contrast. A radiation dose optimization technique was used for this scan. Oral contrast: None. COMPARISON: 07/22/2017 FINDINGS: Evaluation of the solid organs and vascular structures is limited without intravenous contrast. Visualized lung bases: Unremarkable Liver: Scattered subcentimeter hypodensities are too small to characterize but most likely cysts. Gallbladder: Few small intraluminal stones seen. Spleen: Unremarkable Pancreas: Unremarkable Adrenal Glands: Unremarkable Kidneys: Few 3 to 4 mm nonobstructing stones in the left mid and lower renal pole. Vasculature: Mild scattered aortoiliac atherosclerotic calcifications. GI Tract: Scattered diverticula throughout the colon without evidence of inflammation. Lymphadenopathy: None Peritoneum: No ascites. Bladder: Unremarkable Reproductive organs: The prostate is mildly enlarged. Bones/Soft tissues: There are diffuse degenerative changes of the spine. CT/Abdomen/Pelvis without Cont IMPRESSION: No acute abnormalities in the abdomen or pelvis. Few 3 to 4 mm nonobstructing stones in the left mid and lower renal pole. Mild prostatomegaly. Correlate with PSA levels. Cholelithiasis. Electronically Signed: Lake Rodríguez MD at 2:56 EDT ,
== END | disposition home or self-care (01) ==
LOC: CT 16:01
PROVIDERS: PCP Family Medicine; Referring Provider Urology; Visit Provider Urology
DX: R31.9 Hematuria, unspecified (principal)
CPT/HCPCS: 74176

== ENCOUNTER → 2022-07-30 | Outpatient (CLI) | payer OTHER, SELFPAY ==
[2022-07-30 10:01] LABS: Hematocrit 45.7 % (40-54); Hemoglobin 15.4 g/dL (13.0-16.5); Mean Corp Hgb Conc 33.7 g/dL (32-36); Mean Corpuscular Hgb 29.7 pg (27.0-32.0); Mean Corpuscular Volume 88.1 fL (80-94); Mean Platelet Vol. 10.4 fl (6.2-12.0); Platelet Count 169 K/mm3 (150-450); RBC Distribution Width CV 13.1 % (11.6-14.6); RBC Distribution Width SD 42.5 fl (35.1-43.9); Red Blood Count 5.19 M/mm3 (4.6-6.2); White Blood Count 5.5 K/mm3 (4.4-11.0)
[2022-07-30 10:29] LABS: Progesterone Level 0.26 ng/mL (See Comment); Vitamin B12 531 pg/mL (211-911); Vitamin D,25 Hydroxy 35.8 ng/mL
[2022-07-30 10:38] LABS: Hemoglobin A1c 6.5 % (3.8-5.6)
[2022-07-30 10:47] LABS: Homocysteine 7.7 umol/L (3.2-10.7)
[2022-07-30 11:29] LABS: ALB/GLOB Ratio 1.2 RATIO (0.9-2.4); AST(SGOT) 46 U/L (15-37); Alanine Aminotransfer ALT/SGPT 49 U/L (16-61); Albumin, Serum 4.1 g/dL (3.2-5.0); Alkaline Phosphatase 60 U/L (45-117); Anion Gap 5 (5-15); BUN 17 mg/dL (7-18); BUN/Creat Ratio 19.3 RATIO (10-20); CRP, High Sensitivity Cardiac 0.67 mg/L; Calcium,Total 9.4 mg/dL (8.5-10.1); Chloride 104 mmol/L (98-107); Cholesterol 185 mg/dL (200); Creatinine, Serum 0.88 mg/dL (0.70-1.30); EST Glomerular Filtration Rate 92 mL/min (>60); Est Glom Filt Rate - Afr Amer 111 mL/min (>60); Estradiol 41.2 pg/mL; Follicle Stimulating Hormone < 0.2 mIU/mL; Globulin 3.4 g/dL (2.2-4.2); Glucose 126 mg/dL (74-106); High Density Lipoprotein 55 mg/dL; Iron 146 ug/dL (65-175); Luteinizing Hormone < 0.2 mIU/mL; Magnesium 1.8 mg/dL (1.6-2.6); PSA,Total - Annual Screen 1.25 ng/mL (0.00-4.00); Potassium 4.1 mmol/L (3.5-5.1); Prolactin 8.9 ng/mL; Protein, Total 7.5 g/dL (6.4-8.2); Sodium Level 138 mmol/L (136-145); T4 Free Direct 0.84 ng/dL (0.76-1.46); T4 Total, Thyroxin 6.2 ug/dL (4.5-12.1); Thyroid Stim Hormone (TSH) 1.33 uIU/mL (0.358-3.74); Triglycerides 66 mg/dL; Very Low Density Lipoprotein 13 mg/dL (5-40)
[2022-08-06 22:07] LABS: DHEA Sulfate 71.3 ug/dL (30.9-295.6); Insulin Like Growth Factor 183 ng/mL (59-230); Testosterone, % Free 2.67 % (1.50-4.20); Testosterone, Free 15.62 ng/dL (5.00-21.00)
[2022-08-07 11:23] LABS: Sex Hormone-binding Globulin 30.3 nmol/L (19.3-76.4); Testosterone, Total 585 ng/dL (264-916)
== END | disposition home or self-care (01) ==
PROVIDERS: PCP Family Medicine; Referring Provider Nurse Practitioner Family; Visit Provider Nurse Practitioner Family
DX: R53.82 Chronic fatigue, unspecified (principal); M62.81 Muscle weakness (generalized); E29.1 Testicular hypofunction
CPT/HCPCS: 36415; 80053; 80061; 82306; 82533; 82607; 82627; 82670; 82746; 83001; 83002; 83036; 83090; 83540; 83735; 84144; 84146; 84153; 84270; 84305; 84402; 84403; 84436; 84439; 84443; 84480; 85027; 86141; 82626; G0103

== ENCOUNTER → 2022-09-03 | Outpatient (CLI) | payer OTHER, SELFPAY ==
[2022-09-03 16:04] LABS: PSA,Total- Diagnostic 1.07 ng/mL (0.0-4.0)
== END | disposition home or self-care (01) ==
LOC: MTLAB 09:10
PROVIDERS: PCP Family Medicine; Referring Provider Urology; Visit Provider Urology
DX: R30.9 Painful micturition, unspecified (principal)
CPT/HCPCS: 36415; 84153

== ENCOUNTER → 2023-07-10 | Outpatient (CLI) | payer MEDICARE, SELFPAY ==
--- NOTE | 2023-07-10 13:21 | CT_ITS ---
STUDY: CT ABDOMEN AND PELVIS WITH AND WITHOUT CONTRAST REASON FOR EXAM: Male, 68 years old. NOCTURIA BPH. History of prior prostate resection. RADIATION DOSAGE (If Supplied By Facility): CTDIvol = ( 11.88 ) mGy, DLP = ( 1493.36 ) mGycm TECHNIQUE: Transaxial images were obtained from the dome of the diaphragm to the symphysis pubis without oral contrast. IV 100mL Isovue-300 was administered. Sagittal and coronal images were reconstructed. Individualized dose optimization techniques were used for this CT. COMPARISON: Comparison is made with prior study dated May 09, 2022. FINDINGS: The visualized lung bases are unremarkable. Coronary artery calcification. Small cysts are seen in the right lobe of the liver. This is stable. The gallbladder is contracted. Normal spleen. Normal pancreas. Normal bilateral adrenal glands. Punctate calculus is seen in the mid pole calyx of the right kidney posteriorly. 3.5 mm calculus in the mid anterior calyx of the left kidney. Normal visualized stomach. Normal small intestine. There are multiple colonic diverticula consistent with diverticulosis. The appendix is visualized and appears normal. There is scattered atherosclerotic calcification of the abdominal aorta, without a demonstrated aneurysm. Normal inferior vena cava. Normal retroperitoneum. Normal urinary bladder. Normal abdominal wall. There are mild degenerative changes of the visualized lumbar spine. CT/CT Abd/Pelvis W/WO Contrast IMPRESSION: Stable small hepatic cysts. Tiny nonobstructive bilateral intrarenal calculi. Sigmoid diverticulosis. Electronically Signed: Kai Holder MD at 14:22 EDT ,
[2023-07-10 13:47] LABS: CREATININE FINGERSTICK 0.9 mg/dL (0.70-1.30); EGFR FINGERSTICK > 60.0000 mL/min (>60)
== END | disposition home or self-care (01) ==
PROVIDERS: PCP Family Medicine; Referring Provider Nurse Practitioner; Visit Provider Nurse Practitioner
DX: N40.1 Benign prostatic hyperplasia with lower urinary tract symptoms (principal); R35.1 Nocturia; R35.0 Frequency of micturition
CPT/HCPCS: 74178; Q9967

== ENCOUNTER 2023-07-23 13:31 | Observation (INO) | payer MEDICARE, SELFPAY ==
--- NOTE | 2023-07-16 12:25 | EKG12_ITS ---
Test Reason : PRE-OP Blood Pressure : / mmHG Vent. Rate : 059 BPM Atrial Rate : 059 BPM P-R Int : 178 ms QRS Dur : 086 ms QT Int : 368 ms P-R-T Axes : 066 018 044 degrees QTc Int : 364 ms Sinus bradycardia Otherwise normal ECG Confirmed by GABRIELLA RUELAS, RAVINDER ([id number]), technical writer and editor RASHARD CLARKE ([id number]) on 07/22/2023 7:07:59 AM Referred By: Luis Antonio Leblanc Confirmed By:RAVINDER QUIROZ MD
[2023-07-23] VITALS (12 sets, daily range): BP systolic 127–138; BP diastolic 70–97; PULSE 58–77; RESP 13–17; TEMP 36.4–36.6; O2SAT 93–99; BMI 26.1
[2023-07-23] MEDS: Lactated Ringers 1,000 ML 15 ML IV ×2 (11:18→14:28)
[2023-07-23 11:42] LABS: Bedside Glucose 143 mg/dL (74-106)
--- NOTE | 2023-07-23 12:50 | PROS_PTH ---
PATIENT: LUANNE FANG LOC: [facility] U#:[id number] AGE/SX: 68/M ROOM: ID318 RE07/23/[address]: Dr. Luis Antonio Leblanc MD : 1955 BED: 1 DIS: 07/24/2023 SPEC #: [id number] RECD: 07/23/23 15:13 STATUS: MARITZA COWAN #: [id number] YAYA: 07/23/23 12:[address]: Luis Antonio Leblanc DEPT: SURGICAL PATHOLOGY RECD BY: Rosie Burton ENTERED: 07/24/23 08:44 SP TYPE: TURP OTHR DR: Dr. Saroj Hernandez MD Tissues: Prostate, NOS Procedures: Surgery Specimen Level IV HEADER OPERATION: Cysto, transurethral resection prostate PRE-OP DIAGNOSIS: Large obstructive prostate, dysuria TISSUE SUBMITTED: Prostate tissue MICROSCOPIC DIAGNOSIS Prostate, transurethral resection: Benign nodular hyperplasia. Fragments of squamous mucosa with no pathologic change. Mild chronic inflammation. AM:marcelino 07/25/2023 MICROSCOPIC DESCRIPTION Slides are reviewed. GROSS DESCRIPTION Received is one container labeled with the patient's name and designated prostate tissue. The specimen consists of multiple irregular fragments of pink-bustos, rubbery, soft tissue that in aggregate weigh 5 gm and measure in aggregate 5.5 x 3.5 x 0.2 cm. The entire specimen is submitted in two cassettes. / AM:marcelino 07/24/2023 TC:3 CPT: 69773
[2023-07-23] MEDS: Cefazolin 2 GM in 0.9% Normal Saline (100mL Bag) 100 ML IV (12:53)
[2023-07-23] MEDS: Botulinum Toxin A 100 Units Vial IJ (13:14)
[2023-07-23] MEDS: 0.9% Normal Saline (Pres. free 10 ML Vial (13:14)
--- NOTE | 2023-07-23 13:33 | HP.PCM_ITS ---
HPI - General General Date of Service: 07/23/23 Chief Complaint: Pain with urination urgency HPI Narrative LUANNE FANG, is a 68 M who presents for a TURP for regrowth and obstruction and also for Botox injection of the bladder for urgency symptoms he has been having severe spasms in the bladder at night when getting up in severe pain so today we can do Botox injection of the bladder to help calm the bladder down and a TURP for significant regrowth in the prostatic channel unfortunately cannot guarantee the patient that the intervention today will alleviate his pain but hopefully well [facility] Medical History Diabetes Dietary restriction Gastric reflux History of MRSA infection History of stress test Hypertension Leg cramps Migraine headache Non-smoker Prostate disease Home Medications Ramipril 5 mg PO DAILY 11/29/14 [History Last Taken 07/23/23] metformin 500 mg tablet 1,000 mg PO BID 11/29/14 [History Last Taken 07/22/23] zinc 50 mg tablet 50 mg PO DAILY 09/10/21 [History Last Taken 07/22/23] aspirin 81 mg tablet,delayed release (Adult Aspirin Regimen) 81 mg PO DAILY 07/14/23 [History Last Taken 07/13/23] multivitamin (Daily Value tablet) 1 tab PO DAILY 07/14/23 [History Last Taken 07/22/23] pantoprazole 40 mg tablet,delayed release 40 mg PO DAILY 07/14/23 [History Last Taken 07/23/23] testosterone cypionate 100 mg/mL intramuscular oil 50 mg IM QWEEK 07/14/23 [History Last Taken 07/21/23] vitamin C 500 mg-quercetin 250 mg-bioflavonoids, citrus 33 mg capsule (Quercetin Complex) 1 cap PO DAILY 07/14/23 [History Last Taken 07/22/23] vitamin D3 1,250 mcg (50,000 unit)-vitamin K2 200 mcg capsule 1 cap PO DAILY 07/14/23 [History Last Taken 07/22/23] ciprofloxacin HCl 500 mg tablet (Cipro) 500 mg PO BID #10 tabs 07/23/23 [Rx Last Taken Unknown] Allergy/AdvReac Type Severity Reaction Status Date / Time chicken derived Allergy Anaphylaxis Verified 07/23/23 11:18 turkey Allergy Anaphylaxis Verified 07/23/23 11:18 Surgical History History of colonoscopy History of lithotripsy History of transurethral resection of prostate Hx of cystoscopy Social History Smoking Status: Never smoker Vital Signs Vital Signs Vital Signs: 07/23/23 11:13 07/23/23 11:13 Temperature 97.8 F Temperature Source Temporal Pulse Rate 66 Respiratory Rate 17 Respiratory Pattern Normal Blood Pressure 132/84 H Blood Pressure Mean 100 Blood Pressure Source Monitor Blood Pressure Position Semi-Fowlers Blood Pressure Location Left Arm Pulse Ox 98 Oxygen Delivery Method Room Air Weight Weight: 85 kg Body Mass Index (BMI) 26.1 Results Lab / Micro Data Labs: Laboratory Results - last 24 hr 07/23/23 11:24: POC Glucose 143 H
--- NOTE | 2023-07-23 13:34 | OP.PCM_ITS ---
Report of Operation Date of Procedure: 07/23/23 Pre-Operative Diagnosis: Urgency and bladder pain, BPH with obstruction Post-Operative Diagnosis: The same Surgery/Procedure Performed:: Cystoscopy and injection of Botox 100 units into the bladder, transurethral resection of the prostate for regrowth Description of Surgical Findings:: Patient was taken back to the operating room, after induction of anesthesia he was placed in dorsolithotomy position. The penis and testicles were prepped and draped in usual fashion went into the bladder with a 21 [place] rigid cystourethroscope identified the verumontanum identified the prostatic tissue he had significant amount of tissue that was regrowing within the channel causing obstruction, it was shortly in length but definitely obstructive tissue and then inside the bladder was normal and there was no tone tumors no stones smooth wall of the bladder no trabeculation I then injected the bladder with Botox in multiple sites under total of 100 units was given I then switched over to the 24 [place] Olympus noncontinuous flow resectoscope and I resected the floor the prostate back to the verumontanum the right lobe of the prostate left lobe of the prostate and the and the roof of the prostate very carefully sphincter was left away intact had good amount of tissue at the sphincter level did a flow test had a wide open flow. So I feel like no further resection was necessary cauterize and extensively got obtain hemostasis and placed a 22 [place] catheter into the bladder for continuous irrigation overnight we will take out the catheter more morning for voiding trial I will probably also have him stop all his prostate medications deceiving go without it. Surgeon: Luis Antonio Leblanc Type of Anesthesia: General Drains: 22fr 3 way Admit VTE Documentation VTE Present on Admission: No VTE Mechan Device Prophylaxis: SCD's VTE Pharm Prophylaxis ordered?: No
--- NOTE | 2023-07-23 13:34 | DCINST_ITS ---
Discharge Instructions Diet Discharge Diet: No restrictions Activity Discharge Activity: Return to Normal Activity and May Not Drive (while taking narcotic pain medications.) Dressing / Incision Call your doctor if you observe: Fever of 101 or Higher Follow Up Care Please Follow Up With: Luis Antonio Leblanc MD When: Call [phone] for an appointment Test Results: Test results from this visit will be discussed in further detail at your follow- up appointment, if applicable. Discharge Plan Admission Primary Reason for Your Visit: Redo TURP Attending Provider: Luis Antonio Leblanc Primary Care Provider: Saroj Hernandez Discharge Orders/Prescriptions Prescriptions: New ciprofloxacin HCl [Cipro] 500 mg tablet 500 mg PO BID Qty: 10 0RF Continued metformin 500 MG tablet 1,000 mg PO BID Patient Comments: diabetes Ramipril 5 MG capsule 5 mg PO DAILY Patient Comments: blood pressure zinc 50 mg Tablet 50 mg PO DAILY pantoprazole 40 mg tablet,delayed release (DR/EC) 40 mg PO DAILY Quercetin Complex 500-250-33 mg capsule 1 cap PO DAILY aspirin [Adult Aspirin Regimen] 81 mg tablet,delayed release (DR/EC) 81 mg PO DAILY Patient Comments: last dose 07/13/23 for surgery on 07/23/[address] leblanc multivitamin [Daily Value] Tablet 1 tab PO DAILY vitamin D3-vitamin K2 1,250-200 mcg capsule 1 cap PO DAILY testosterone cypionate 100 mg/mL oil 50 mg IM QWEEK Discontinued finasteride 5 mg tablet 5 mg PO DAILY Myrbetriq 50 mg tablet extended release 24 hr 50 mg PO DAILY omega 9-mfz-[id number]-fish oil [Fish Oil] 1,200 (144-216) mg capsule 1 cap PO DAILY Referrals / Follow Up: Saroj Hernandez MD [Primary Care Provider] - Disposition Disposition (needs filled in before D/C Order can be placed): Home, Self Care
[2023-07-23 14:07] LABS: Bedside Glucose 129 mg/dL (74-106)
[2023-07-23] MEDS: Ketorolac 15 MG/ML Vial IV (14:25)
[2023-07-23] MEDS: metFORMIN HCl 500 MG Tablet 1000 MG PO (18:00)
[2023-07-23] MEDS: 0.9% Normal Saline (1000mL) 1,000 ML 125 ML IV (18:00)
[2023-07-23] MEDS: Docusate Sodium 100 MG Capsule 200 MG PO (21:05)
[2023-07-24] MEDS: Ciprofloxacin 400 MG/200 ML BAG 200 MG IV ×2 (00:17→11:59)
[2023-07-24] MEDS: Ketorolac 15 MG/ML Vial IV (02:14)
[2023-07-24] MEDS: 0.9% Normal Saline (1000mL) 1,000 ML 125 ML IV (02:15)
[2023-07-24 03:41] VITALS: BP 119/80; PULSE 71; RESP 16; TEMP 36.6; O2SAT 96
--- NOTE | 2023-07-24 06:54 | PCM.PN.GU ---
Subjective Subjective Status post transurethral resection of the prostate doing well urine is clear we can remove the catheter this morning patient can go home after urinate Objective Data Objective Data Vital Signs: Vital Signs Temp Pulse Resp BP Pulse Ox O2 Del Method 98 F 71 16 119/80 96 Room Air 07/24/23 03:41 07/24/23 03:41 07/24/23 03:41 07/24/23 03:41 07/24/23 03:41 07/24/23 03:41 Oxygen Delivery Method Room Air Weight: 85 kg Body Mass Index (BMI) 26.1 Intake & Output: Intake and Output for Last 24 Hours 07/22/23 07/23/23 07/24/23 23:59 23:59 23:59 Intake Total 1178 / 1178 985.42 / 985.42 Output Total 2730 / 2730 Balance -1552 / -1552 985.42 / 985.42 Lab / Micro Data Labs: Laboratory Results - last 24 hr 07/23/23 11:24: POC Glucose 143 H 07/23/23 13:48: POC Glucose 129 H
[2023-07-24] MEDS: metFORMIN HCl 500 MG Tablet 1000 MG PO (07:58)
[2023-07-24] MEDS: Multivitamins,Therapeutic Tablet 1 TABLET PO (07:58)
[2023-07-24] MEDS: Docusate Sodium 100 MG Capsule 200 MG PO (07:58)
[2023-07-24] MEDS: Ramipril 5 MG Capsule PO (07:58)
[2023-07-24] MEDS: Pantoprazole Sodium 40 MG Tablet PO (08:05)
[2023-07-24 10:00] VITALS: BP 119/82; PULSE 65; RESP 14; TEMP 37.1; O2SAT 96
--- NOTE | 2023-07-24 11:01 | CASEMGMT ---
Social Work SW spoke with about providing copies of advanced directives, but is already on the way to transport pt home for DC. offered to fax records. SW agreed and since is driving, the phone and fax number for [facility] medical records will be provided to pt in room. appreciative. 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
--- NOTE | 2023-07-24 11:26 | CASEMGMT ---
Advanced Directive Validation Refer to prior social work note this date, from Nilda Rodriguez, regarding attempt at Advanced Directive Validation. Followed up with patient and to provide the number and fax to [facility] Medical records department. Also provided this senior technical writer's email should patient prefer this option. Patient and agreeable to follow up with request to provide directives, and deny any concerns with home going. Plan: Discharge home with today. -WILLIAM Hopkins
--- NOTE | 2023-07-24 11:42 | PHA.DC.MC.R ---
Pharmacy [facility] Pharm[facility] Service has performed discharge medication reconciliation and counseling for this patient. The patient was counseled on the following discharge medications and changes in medications for homegoing were reviewed. 1. CIPRO The Reason for Use, instructions for use, and potential side effects were reviewed for all new medications. The patient's questions regarding all of their medications were answered. The patient was able to verbally demonstrate an understanding of their discharge medications. The patient's discharge medication list was reviewed for discrepancies and discrepancies were resolved. Medications at Discharge Home Medications Ramipril 5 mg PO DAILY 11/29/14 metformin 500 mg tablet 1,000 mg PO BID 11/29/14 zinc 50 mg tablet 50 mg PO DAILY 09/10/21 aspirin 81 mg tablet,delayed release (Adult Aspirin Regimen) 81 mg PO DAILY 07/14/23 multivitamin (Daily Value tablet) 1 tab PO DAILY 07/14/23 pantoprazole 40 mg tablet,delayed release 40 mg PO DAILY 07/14/23 testosterone cypionate 100 mg/mL intramuscular oil 50 mg IM QWEEK 07/14/23 vitamin C 500 mg-quercetin 250 mg-bioflavonoids, citrus 33 mg capsule (Quercetin Complex) 1 cap PO DAILY 07/14/23 vitamin D3 1,250 mcg (50,000 unit)-vitamin K2 200 mcg capsule 1 cap PO DAILY 07/14/23 ciprofloxacin HCl 500 mg tablet (Cipro) 500 mg PO BID #10 tabs 07/23/23
== END 2023-07-24 13:35 | disposition home or self-care (01) ==
LOC: SDC 15:13 → MS3 15:13
PROVIDERS: Admitting Provider Urology; PCP Family Medicine; Referring Provider Urology; Visit Provider Urology
PROC: 0VT08ZZ Resection of Prostate, Via Natural or Artificial Opening Endoscopic (ICD-10-PCS; CPT 52601; principal; 2023-07-23 12:40)
DX: N40.1 Benign prostatic hyperplasia with lower urinary tract symptoms (principal); E11.9 Type 2 diabetes mellitus without complications; R39.15 Urgency of urination; N32.89 Other specified disorders of bladder; Z79.84 Long term (current) use of oral hypoglycemic drugs; I10 Essential (primary) hypertension; Z79.82 Long term (current) use of aspirin; R33.8 Other retention of urine; Z86.14 Personal history of Methicillin resistant Staphylococcus aureus infection; Z79.899 Other long term (current) drug therapy; K21.9 Gastro-esophageal reflux disease without esophagitis; R35.1 Nocturia; R35.0 Frequency of micturition
CPT/HCPCS: 52630; 00914; 52287; 82962; 88305; 93005; 94668; 96361; 96365; 96366; 96375; 99221; J7030; J7120; G0378; J0585; J0744; J2405; J3490

== ENCOUNTER → 2025-04-26 | Outpatient (CLI) | payer MEDICARE, SELFPAY ==
--- NOTE | 2025-04-26 12:53 | CT_ITS ---
PROCEDURE: ABDOMEN/PELVIS WITHOUT CONT 04/26/2025 REASON FOR EXAM: GROSS HEMATURIA TECHNIQUE: ABDOMEN/PELVIS WITHOUT CONT Noncontrast technique limits evaluation of the abdominal and pelvic viscera. Coronal and Sagittal reconstruction series were provided. One or more dose reduction techniques were used (e.g., Automated exposure control, adjustment of the mA and/or kV according to patient size, use of iterative reconstruction technique). RADIATION DOSE SUMMARY: CTDlvol: 9.52 mGy DLP: 491.47 mGycm COMPARISON: Prior study dated July 10, 2023. FINDINGS: Lung bases: The lung bases are clear. Coronary artery calcification. Liver: Stable small cyst in the dome of the right lobe of the liver posteriorly. Gallbladder: Unremarkable. Spleen: Normal size. Pancreas: Normal size. No surrounding inflammation. Adrenals: Unremarkable Kidneys: 6.3 mm in the midpole calyx of the left kidney. Tiny nonobstructive calculus in the lower pole calyx of the left kidney. Bladder: Unremarkable. The prostate is heterogeneously enlarged with indentation of the bladder base. Bowel: Colonic diverticulosis without diverticulitis. Appendix: Unremarkable Lymph nodes: Unremarkable. Vasculature: Mild diffuse atherosclerotic calcifications are noted. Peritoneum / Retroperitoneum: Small right inguinal hernia containing fat. Bones: Degenerative changes of the spine. CT/Abdomen/Pelvis without Cont IMPRESSION: Nonobstructive left intrarenal calculi. Reading Location: [id number]
== END | disposition home or self-care (01) ==
LOC: CT 12:49
PROVIDERS: PCP Family Medicine; Referring Provider Urology; Visit Provider Urology
DX: R31.0 Gross hematuria (principal)
CPT/HCPCS: 74176

== ENCOUNTER 2025-05-11 13:12 | Day surgery (SDC) | payer MEDICARE, SELFPAY ==
[2025-05-11] VITALS (7 sets, daily range): BP systolic 135–162; BP diastolic 82–94; PULSE 66–76; RESP 16–18; TEMP 36.1–36.8; O2SAT 95–97; BMI 26.2
--- NOTE | 2025-05-11 07:11 | HP.PCM_ITS ---
HPI - General General Date of Service: 05/11/25 Chief Complaint: Left kidney stone HPI Narrative LUANNE FANG, is a 70 M who presents for left extracorporeal shockwave lithotripsy of a kidney stone possible stent placement [facility] Medical History (Updated 05/04/25 @ 13:19 by Yusra Moise) Kidney stones Excessive bleeding History of MRSA infection Diabetes Prostate disease Migraine headache Dietary restriction Gastric reflux Non-smoker Leg cramps History of stress test Hypertension Home Medications ?Medication ?Instructions ?Recorded ?Last Taken ?Type metformin 500 mg tablet 1,000 mg PO BID 11/29/1408/04 History zinc 50 mg tablet 50 mg PO DAILY 09/10/2107/13 History aspirin 81 mg tablet,delayed 81 mg PO DAILY 07/14/23 0 05/03/25 History release (Adult Aspirin Regimen) multivitamin (Daily Value tablet) 1 tab PO DAILY 07/1407/22/23 History pantoprazole 40 mg tablet,delayed 40 mg PO DAILY 07/1407/23/23 History release testosterone cypionate 100 mg/mL 50 mg IM QWEEK 07/21/23 History intramuscular oil vitamin C 500 mg-quercetin 250 1 cap PO DAILY 07/14/23 07/22/23 History mg-bioflavonoids, citrus 33 mg capsule (Quercetin Complex) vitamin D3 1,250 mcg (50,000 1 cap PO DAILY 07/14/23 1 History unit)-vitamin K2 200 mcg capsule cholecalciferol (vitamin D3) 50 50 mcg PO DAILY Unknown History mcg (2,000 unit) capsule (Vitamin D3) cyanocobalamin (vitamin B-12) 100 100 mcg PO DAILY Unknown History mcg tablet (Vitamin B-12) propranolol 80 mg capsule,24 80 mg PO DAILY 05/04/25 U nknown History hr,extended release ramipril 5 mg capsule 5 mg PO DAILY 05/04/25 Unkno wn History Allergy/AdvReac Type Severity Reaction Status Date / Time chicken derived Allergy Anaphylaxis Verified 05/04/25 13:09 turkey Allergy Anaphylaxis Verified 05/04/25 13:09 Surgical History (Updated 05/04/25 @ 13:22 by Yusra Moise) Hx of rotator cuff surgery History of lithotripsy History of colonoscopy History of transurethral resection of prostate Hx of cystoscopy Social History Smoking Status: Never smoker
--- NOTE | 2025-05-11 07:11 | PCM.HP.STD ---
HPI - General General Date of Service: 05/11/25 Chief Complaint: Left kidney stone HPI Narrative LUANNE FANG, is a 70 M who presents for left extracorporeal shockwave lithotripsy of a kidney stone possible stent placement [facility] Medical History (Updated 05/04/25 @ 13:19 by Yusra Moise) Kidney stones Excessive bleeding History of MRSA infection Diabetes Prostate disease Migraine headache Dietary restriction Gastric reflux Non-smoker Leg cramps History of stress test Hypertension Home Medications ?Medication ?Instructions ?Recorded ?Last Taken ?Type metformin 500 mg tablet 1,000 mg PO BID 11/29/14 07/22/23 History zinc 50 mg tablet 50 mg PO DAILY 09/10/21 07/22/23 History aspirin 81 mg tablet,delayed 81 mg PO DAILY 07/14/23 05/03/25 History release (Adult Aspirin Regimen) multivitamin (Daily Value tablet) 1 tab PO DAILY 07/14/23 07/22/23 History pantoprazole 40 mg tablet,delayed 40 mg PO DAILY 07/14/23 07/23/23 History release testosterone cypionate 100 mg/mL 50 mg IM QWEEK 07/14/23 07/21/23 History intramuscular oil vitamin C 500 mg-quercetin 250 1 cap PO DAILY 07/14/23 07/22/23 History mg-bioflavonoids, citrus 33 mg capsule (Quercetin Complex) vitamin D3 1,250 mcg (50,000 1 cap PO DAILY 07/14/23 07/22/23 History unit)-vitamin K2 200 mcg capsule cholecalciferol (vitamin D3) 50 50 mcg PO DAILY 05/04/25 Unknown History mcg (2,000 unit) capsule (Vitamin D3) cyanocobalamin (vitamin B-12) 100 100 mcg PO DAILY 05/04/25 Unknown History mcg tablet (Vitamin B-12) propranolol 80 mg capsule,24 80 mg PO DAILY 05/04/25 Unknown History hr,extended release ramipril 5 mg capsule 5 mg PO DAILY 05/04/25 Unknown History Allergy/AdvReac Type Severity Reaction Status Date / Time chicken derived Allergy Anaphylaxis Verified 05/04/25 13:09 turkey Allergy Anaphylaxis Verified 05/04/25 13:09 Surgical History (Updated 05/04/25 @ 13:22 by Yusra Moise) Hx of rotator cuff surgery History of lithotripsy History of colonoscopy History of transurethral resection of prostate Hx of cystoscopy Social History Smoking Status: Never smoker
--- NOTE | 2025-05-11 13:25 | PCM.PRE.AN2 ---
ASA Classification* ASA Classification ASA Classification: 1 and 2 Assessment & Plan Anesthesia* Anesthesia Assessment Anesthesia Assessment: Discussed sedation and/or anesthesia options, risks, benefits, and alternatives with patient/parents/legal guardian/POA. Questions invited. The patient/parents/legal guardian/POA seems to understand and agrees to proceed with anesthesia plan. Reviewed the physical assessment, medical history, allergy history and patient home medications list prior to surgery/procedure/anesthetic and documented any changes. Performed airway and anesthesia risk assessments. Anesthesia Type Anesthesia Type: General History Source History Obtained from:: Patient Anesthesia Focused Assessment* Oxygen Delivery Method: Room Air Airway Assessment Mouth opens: >3 cm Mallampati Score: I Teeth Condition: Intact Labs Anesthesia Preop lab: CBC WBC 5.5 K/mm3 (4.4-11.0) 07/30/22 07:22 07/30/22 RBC 5.19 M/mm3 (4.6-6.2) 07/30/22 07:22 07/30/22 Hgb 15.4 g/dL (13.0-16.5) 07/30/22 07:22 07/30/22 Hct 45.7 % (40-54) 07/30/22 07:22 07/30/22 Plt Count 169 K/mm3 (150-450) 07/30/22 07:22 07/30/22 CHEMISTRY Potassium 4.1 mmol/L (3.5-5.1) 07/30/22 07:22 07/30/22 Sodium 138 mmol/L (136-145) 07/30/22 07:22 07/30/22 Magnesium 1.8 mg/dL (1.6-2.6) 07/30/22 07:22 07/30/22 BUN 17 mg/dL (7-18) 07/30/22 07:22 07/30/22 Creatinine 0.88 mg/dL (0.70-1.30) 07/30/22 07:22 07/30/22 Glucose 126 mg/dL (74-106) H 07/30/22 07:22 07/30/22 POC Glucose 129 mg/dL (74-106) H 07/23/23 13:48 07/23/23 TSH 1.33 uIU/mL (0.358-3.74) 07/30/22 07:22 07/30/22 COAG Pre-Assessment Diagnosis/Proposed Procedure Planned Operative Procedure(s): (L) ESWL Anesthesia History 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 When Was Last Pacemaker Check QUESTION #4 FULL TEXT: You/Your Family Experience fever (hyperthermia) with Anesthesia Last Oral Intake Last Oral intake: Last Oral Intake NPO since Meds taken in AM with sips of water? Meds patient instructed to take am of surgery PONV PONV - brass plater: PONV - brass plater Female No 05/04/25 13:19 HX of Motion Sickness No 05/04/25 13:19 HX of N/V After Surgery No 05/04/25 13:19 Non-Smoker Yes 05/04/25 13:19 Duration of Surgery greater No 05/04/25 13:19 than 60 minutes Number of Risk Factors 1 05/04/25 13:19 PONV Score Low Risk 05/04/25 13:19 Height & Weight Height & Weight: Anesthesia: Height & Weight Height 5 ft 11 in 07/23/23 11:13 Respiratory Assessment Respiratory Assessment - brass plater: Respiratory Tract Infection Hx - brass plater Hx Respiratory Tract Infection No 05/04/25 13:19 STOP Sleep Apnea STOP Sleep Apnea - brass plater: STOP Sleep Apnea - brass plater Hx Hypertension Yes: PER PT, CONTROLLED WITH 05/04/25 13:19 MED Hx Sleep Apnea No 05/04/25 13:19 CPAP BIPAP Do you snore loudly (louder No 05/04/25 13:19 than talking or can be heard Do you often feel tired/ No 05/04/25 13:19 fatigued/ sleepy during daytime? Has anyone observed you stop No 05/04/25 13:19 breathing during sleep? STOP Results Negative 05/04/25 13:19 QUESTION #5 FULL TEXT : Do you snore loudly (louder than talking or can be heard through closed doors)? 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 Specify any problems Hx of Preganancy in last 3 N/A 05/04/25 13:19 Months Nurse Filling Out Transfusion VCHRISTIN 05/04/25 13:19 & Questions: Date: 05/04/25 05/04/25 13:19 Time: 13:20 05/04/25 13:19 Patient unable to answer at this time (ie. confused, unrespo /Reproduction History /Reproductive History - brass plater: /Reproductive Hx- brass plater Hx Now No 05/04/25 13:19 Gestational Age (in weeks): EDC: Hx Hx Para Hx Section SAB No 05/04/25 13:19 Active Medications Active Medications: Current Medications Generic Name Dose Route Start Last Admin Trade Name Freq PRN Reason Stop Dose Admin Cefazolin Sodium 2 gm/ Sodium 110 mls @ 200 mls/hr 05/11/25 15:50 Chloride IV 05/11/25 16:22 INTRAOP ONE Lactated Ringer's 1,000 mls @ 15 mls/hr 05/11/25 13:30 IV .Q48H DOLORES PFSH Medical History (Updated 05/04/25 @ 13:19 by Yusra Moise) Kidney stones Excessive bleeding History of MRSA infection Diabetes Prostate disease Migraine headache Dietary restriction Gastric reflux Non-smoker Leg cramps History of stress test Hypertension Home Medications ?Medication ?Instructions ?Recorded ?Last Taken ?Type metformin 500 mg tablet 1,000 mg PO BID 11/29/14 07/22/23 History zinc 50 mg tablet 50 mg PO DAILY 09/10/21 07/22/23 History aspirin 81 mg tablet,delayed 81 mg PO DAILY 07/14/23 05/03/25 History release (Adult Aspirin Regimen) multivitamin (Daily Value tablet) 1 tab PO DAILY 07/14/23 07/22/23 History pantoprazole 40 mg tablet,delayed 40 mg PO DAILY 07/14/23 07/23/23 History release testosterone cypionate 100 mg/mL 50 mg IM QWEEK 07/14/23 07/21/23 History intramuscular oil vitamin C 500 mg-quercetin 250 1 cap PO DAILY 07/14/23 07/22/23 History mg-bioflavonoids, citrus 33 mg capsule (Quercetin Complex) vitamin D3 1,250 mcg (50,000 1 cap PO DAILY 07/14/23 07/22/23 History unit)-vitamin K2 200 mcg capsule cholecalciferol (vitamin D3) 50 50 mcg PO DAILY 05/04/25 Unknown History mcg (2,000 unit) capsule (Vitamin D3) cyanocobalamin (vitamin B-12) 100 100 mcg PO DAILY 05/04/25 Unknown History mcg tablet (Vitamin B-12) propranolol 80 mg capsule,24 80 mg PO DAILY 05/04/25 Unknown History hr,extended release ramipril 5 mg capsule 5 mg PO DAILY 05/04/25 Unknown History Allergy/AdvReac Type Severity Reaction Status Date / Time chicken derived Allergy Anaphylaxis Verified 05/04/25 13:09 turkey Allergy Anaphylaxis Verified 05/04/25 13:09 Surgical History (Updated 05/04/25 @ 13:22 by Yusra Moise) Hx of rotator cuff surgery History of lithotripsy History of colonoscopy History of transurethral resection of prostate Hx of cystoscopy Social History Smoking Status: Never smoker Review of Systems (Anesthesia) ROS Narrative System reviewed and no additional complaints, except as documented.
[2025-05-11] MEDS: Lactated Ringers 1,000 ML 15 ML IV (13:30)
--- NOTE | 2025-05-11 16:23 | DCINST_ITS ---
Discharge Instructions DC O2, CPAP, BIPAP needs Home O2 Discharge instructions: No Dressing / Incision Discharge Activity: Return to Normal Activity and May Not Drive (while taking narcotic pain medications.) Dressing / Incision Call your doctor if you observe: Fever of 101 or Higher and Uncontrolled pain Follow Up Care Please Follow Up With: Luis Antonio Leblanc MD When: Call [phone] for an appointment Test Results: Test results from this visit will be discussed in further detail at your follow- up appointment, if applicable. Discharge Plan Admission Primary Reason for Your Visit: Left extracorporeal shockwave lithotripsy Attending Provider: Luis Antonio Leblanc Primary Care Provider: Saroj Hernandez Instructions Print Language: Estonian Discharge Orders/Prescriptions Prescriptions: New ciprofloxacin HCl [Cipro] 500 mg tablet 500 mg PO BID Qty: 6 0RF oxycodone 5 mg tablet 5 mg PO Q6H PRN (Reason: pain) 7 Days Qty: 20 0RF Continued metformin 500 MG tablet 1,000 mg PO BID Patient Comments: diabetes zinc 50 mg Tablet 50 mg PO DAILY pantoprazole 40 mg tablet,delayed release (DR/EC) 40 mg PO DAILY Quercetin Complex 500-250-33 mg capsule 1 cap PO DAILY multivitamin [Daily Value] Tablet 1 tab PO DAILY vitamin D3-vitamin K2 1,250-200 mcg capsule 1 cap PO DAILY testosterone cypionate 100 mg/mL oil 50 mg IM QWEEK propranolol 80 mg capsule,extended release 24 hr 80 mg PO DAILY Patient Comments: FOR MIGRAINES ramipril 5 mg capsule 5 mg PO DAILY cyanocobalamin (vitamin B-12) [Vitamin B-12] 100 mcg tablet 100 mcg PO DAILY cholecalciferol (vitamin D3) [Vitamin D3] 50 mcg (2,000 unit) capsule 50 mcg PO DAILY Held aspirin [Adult Aspirin Regimen] 81 mg tablet,delayed release (DR/EC) 81 mg PO DAILY Hold Instructions: Resume on 05/18/25. Patient Comments: last dose 05/03/25 for surgery Referrals / Follow Up: Luis Antonio Leblanc MD [Med Staff - Active Staff] - Saroj Hernandez MD [Primary Care Provider] - Disposition Disposition (needs filled in before D/C Order can be placed): Home, Self Care
--- NOTE | 2025-05-11 17:12 | OP.PCM_ITS ---
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 In the preoperative area and x-ray was done to confirm the location of the stone. The x-ray was reviewed and the stone location was reviewed. In the preoperative setting I spoke with the patient regarding the treatment of the stone how the treatment would be conducted and the expectations after surgery. The patient understands there is a risk of bleeding and i nfection. Also discussed the very rare risk of hematoma or damage to the kidney. We also discussed the risk that the shockwave machine will fail to break the stone adequately and that the patient may need other surgical procedures. I also discussed the possibility that the patient may need a stent after the procedure. After reviewing the procedure with the patient, the patient is signed the consent form all the patient's questions were addressed and was taken back to the operating room for treatment of a kidney stone. Patient was taken back to the operating room, the patient was identified by the nursing staff, I identified the side of the treatment and the patient side of treatment had been marked by my initials. The patient underwent general anesthetic and was placed supine on the lithotripter table. I then used fluoroscopy to identify the stone on the left side. I then positioned the patient under the lithotripter and I used triangulation technique to identify the location of the stone and then I made sure that the stone was engaged in the F2 focal point of F2 Donier lithoprior machine. Once the patient was positioned appropriately and the stone was identified and placed in the F2 focal point of the lithotripter machine I then proceeded with shockwave lithotripsy. In the beginning the shockwave was delivered at a rate of 90 shocks per minute, anesthesia monitored the EKG for any ectopy. The power was slowly increased to 5 kV and subsequently at the 7 kV. I then proceeded with the treatment with shock wave therapy and around during the treatment to make sure the stone stayed in the F2 focal point during the entire treatment and after 3000 shockwaves were delivered to the stone under fluoroscopic guidance the treatment was completed. The patient was given instructions to call the office to make an a follow-up appointment with an x-ray to evaluate the success of the treatment, patient understands that its possible the stones may need another procedure. At this point the patient's anesthetic was reversed patient was extubated and taken back to the PACU in stable condition. Surgical Findings: Stone in the left kidney treated with shockwave lithotripsy Complications Complications: No Admit VTE Documentation VTE Present on Admission: No VTE Mechan Device Prophylaxis: SCD's VTE Pharm Prophylaxis ordered?: No
--- NOTE | 2025-05-11 18:50 | PCM.POSTANE2 ---
Anesthesia Postop Eval I Sum Anesthesia Postop Eval I Summary Anesthesia Postop Eval I Summary: Anesthesia Postop Eval I: Assessment Summary Airway patent Spontaneous unlabored respirations Mental status nausea Vomiting Anesthesia Postop Eval I: Fluid Summary Crystalloid volume administer (ml) Colloids volume administered ( ml) Blood Product volume administered (ml) Total IV fluid infused Anesthesia Postop Eval I: Summary Notes Anesthesia Complication Anesthesia Complication Comment: Post-operative progress note Anesthesia: Postop Eval II Evaluation Mental status: Awake and Calm Pain Level: 0 nausea: No Vomiting: No Progress Note Post-operative progress note: Tolerated procedure well. VSS Complications Anesthesia Complication: No
== END 2025-05-11 18:14 | disposition home or self-care (01) ==
LOC: SDC 13:14 → AC 13:15
PROVIDERS: PCP Family Medicine; Referring Provider Urology; Visit Provider Urology
PROC: (CPT 50590; principal; 2025-05-11 15:05)
DX: N20.0 Calculus of kidney (principal); E11.9 Type 2 diabetes mellitus without complications; I10 Essential (primary) hypertension; K21.9 Gastro-esophageal reflux disease without esophagitis; Z79.82 Long term (current) use of aspirin; Z79.84 Long term (current) use of oral hypoglycemic drugs; Z79.899 Other long term (current) drug therapy; Z87.442 Personal history of urinary calculi
CPT/HCPCS: 82962; J2405